=== PATIENT | male | born 1965 | race Caucasian/White ===

== ENCOUNTER → 2018-04-24 08:17 | Outpatient (CLI) | payer OTHER, SELFPAY ==
[2018-04-24 10:03] LABS: Add Manual Diff / Slide Review NO; Basophils Percent Auto 0.6 % (0-2); Eosinophils Percent Auto 2.9 % (2-4); Hematocrit 43.9 % (41-53); Hemoglobin 15.1 g/dL (13.5-17.5); Lymphocytes Percent Auto 10.6 % (25-40); Mean Corpuscular HGB Conc 34.4 % (30-36); Mean Corpuscular Hemoglobin 29.3 PG (26-34); Monocytes Percent Auto 6.3 % (3-14); Neutrophils Absolute Auto 7300 /uL (3000-5900); Neutrophils Percent Auto 79.6 % (50-75); Platelet Count 283 X10^3/uL (150-400); Red Blood Cell Count 5.16 X10^6/uL (4.5-5.9); Red Cell Distribution Width 14.3 % (11.6-14.8); White Blood Cell Count 9.1 X10^3/uL (4.5-11.0)
[2018-04-24 10:07] LABS: Alanine Aminotransferase 66 IU/L (21-72); Albumin 4.7 g/dL (3.5-5.0); Albumin Globulin Ratio 1.6 (1.0-2.8); Alkaline Phosphatase 63 U/L (38-126); Aspartate Aminotransferase 27 IU/L (17-59); BUN Creatinine Ratio 32.9 (6-22); Bilirubin Total 0.5 mg/dL (0.2-1.3); Blood Urea Nitrogen 23 mg/dL (9-20); Calcium 9.7 mg/dL (8.4-10.2); Carbon Dioxide 29 mmol/L (22-32); Chloride 99 mmol/L (98-107); Estimated Glomerular Filt Rate > 60.0 mL/min (>60); Globulin 2.9 g/dL (1.7-4.1); Glucose 115 mg/dL (70-100); HEMOLYSIS < 15 (0-50); Potassium 4.1 mmol/L (3.4-5.1); Sodium 141 mmol/L (137-145); Total Protein 7.6 g/dL (6.3-8.2)
[2018-04-24 10:27] LABS: Follicle Stimulating Hormone 1.66 mIU/mL
[2018-04-27 20:21] LABS: Testosterone, Free 0.69 ng/dL
== END ==
PROVIDERS: PCP Family Medicine; Visit Provider Family Medicine
DX: G35 Multiple sclerosis (principal); E34.9 Endocrine disorder, unspecified; E29.1 Testicular hypofunction
CPT/HCPCS: 36415; 80053; 83001; 83002; 84402; 85025

== ENCOUNTER 2018-06-26 07:30 | Outpatient (RCR) | payer OTHER, SELFPAY ==
--- NOTE | 2018-03-29 11:40 | PT.OTN ---
Current Diagnoses Multiple sclerosis (03/29/18) Muscle weakness (generalized) (03/29/18) Unsteadiness on feet (03/29/18) Transition note: On March 27, 2018 our therapy services consisting of Speech, Occupational, and Physical Therapy transitioned from the [employer] electronic documentation system to a new [employer] electronic documentation system.?? All documentation prior to March 27 can be found under [employer] saved data. From March 27 forward all medical record documentation will be in [employer] 6.1.
--- NOTE | 2018-04-05 08:21 | PT.OTRE ---
Current Diagnoses Multiple sclerosis (04/05/18) Muscle weakness (generalized) (04/05/18) Unsteadiness on feet (04/05/18) Surgical History Status post appendectomy Status post cholecystectomy Provider Visit Care Team Role Provider Type Jannet Luque MD Attending Provider Non-Staff Family Provider Primary Care Provider Specialty: Medical Address: [address] [place] [address], [id number], [place], [address] Email: Physical Therapy Re-Evaluation PT-OP-A Visit Information Start: 03/29/18 07:32 Freq: Status: Active Protocol: Document 03/29/18 08:20 EA (Rec: 03/29/18 09:02 EA [id number]) Out-Patient Physical Therapy Visit Information Visit Information Visit Type Treatment Note Visit Note Re-assessment Total Visit Minutes 45 Visit Number 17 of 60 PT-OP-C Subjective Start: 03/29/18 07:32 Freq: Status: Active Protocol: Document 03/29/18 08:20 EA (Rec: 03/29/18 09:02 EA [id number]) OP-PT Subjective Patient Comments Patient Comments Patient reports activity tolerance is improved as he is able to perform regular cardio and HEP more than 3x wk ; states at times general fatigue but recovered quickly. Denies fall in the past weeks and currently maintain ADL's except with driving and bathing. Patient Reported Progress Improving PT-OP-D Balance Start: 03/29/18 07:32 Freq: Status: Active Protocol: Document 03/29/18 08:20 EA (Rec: 03/29/18 09:02 EA [id number]) OP-PT Balance Assessment Sitting Balance Static Sitting Balance Ability Good Dynamic Sitting Balance Ability Good Standing Balance Static Standing Balance Ability Good Dynamic Standing Balance Ability Fair Device Used standrad cane to left hand Standing Balance Comments Balance difficulty accompanied w/ muscular fatigue and weakness Balance Tests Barry Balance Test Barry Impairment Rating 40 to 59% Impaired (Score 23- 33) Functional Reach Functional Reach Impairment Rating 1 to <20% Impaired (Score 9) Romberg Romberg unable Single Limb Standing Single Limb- Right unable Single Limb- Left unable Semi-Tandem Standing Semi-Tandem Standing Balance unable Tandem Tandem Standing Unable Other Other Balance Tests Performed TUG TEST: w/ cane = 22 seconds . High risk fall Barry Balance Assessment Evaluation Sitting to Standing Ability Independent w/Hands Unsupported Stance Safely- 2 minutes Sitting Unsupported, Feet on Floor Safely- 2 minutes Standing to Sitting Ability Safely, Minimal Hand Use Transfer Ability Safely, Hand Use Unsupported Stance- Eyes Closed Supervision, 10 seconds Unsupported Stance- Eyes Open Independent, 1 minute Reaching Forward Standing Confidently, 10 inches Pick- Up Object From Floor Requires Assistance Look Behind Shoulder - Standing Shifts Weight Well Turning 360 Degrees Turns slowly, but safely Unsupported Stance, Alternating Feet on Assist to Prevent Fall Stair Unsupported Tandem Stance Balance Lost- Step/Stand Unilateral Leg Stance Unable,assist to not fall Total Score Barry Total Score (out of 56 points) 35 Barry Impairment Rating 20 to 39% Impaired (Score 34- 44) Tinetti Balance Assessment Sitting Balance Sitting Balance Steady, safe Arising from Chair Ability to Arise Able, uses arms to help Attempts to Arise Arises on 1st attempt Standing Balance Immediate Standing Balance Steady w/o support Standing Balance Steady, wide stance Nudged Response Steady Standing with Eyes Closed Steady Turning Step Pattern Turning 360 Degrees Continuous steps Stability Turning 360 Degrees Steady Sitting Down Sitting Down Uses arms or unsteady Gait and Step Initiation of Gait No hesitancy Right Foot Step Length Does not pass stance ft. Right Foot Step Height Does not clear floor Left Foot Step Length Does pass stance foot Left Foot Step Height Completely clears floor Step Description Step Symmetry Step length not equal Gait Description Path Description Straight Scoring and Interpretation Tinetti Composite Score (points) 18 Interpretation of Scores High risk for falls(< 19) Tinetti Impairment Rating from Composite 20 to <40% Impaired (Score 17- Score 22) Escoto Fall Scale Copyright Permission Tigist JM, Tigist RM, Trung SJ. Development of a scale to identify the fall- prone patient. Can J Aging 1989;8;366-7. Kat Escoto (2009). Preventing patient falls. (2nd ed). [place]: [place]. PT-OP-E Functional Tests Start: 03/29/18 07:32 Freq: Status: Active Protocol: Document 03/29/18 09:10 EA (Rec: 03/29/18 09:15 EA [id number]) Functional Tests Timed Up and Go (TUG) Score 22 Comments w/ cane TUG Impairment Rating 100% Impaired (Score 20) PT-OP-G Mobility & Gait Start: 05/03/18 07:32 Freq: Status: Active Protocol: Document 03/29/18 13:44 EA (Rec: 03/29/18 13:48 EA [id number]) OP Gait Assessment Gait Gait Assistance Required: Independent Able to Maintain Weight Bearing Status Yes During Gait Assistive Devices Assistive Device Gait Belt Straight Cane Orthotic/Prosthetic Devices or Brace: Yes Gait Deviations General Gait Pattern Decreased Feet Clearance Lateral Trunk Lean Wide Based Gait Factors Limiting Gait Function Factors Limiting Gait Function Abnormal Tonal Influences Decreased Strength Comments Gait Comments Patient ambulated typical flexion synergy pattern w/ right elbow flex and right foot slight PF during swing phase; however when foot orthotic is on, patient able to clear the foot effectively. Constan cues iproved patien amb. Stair Climbing Evaluation Evaluation Level of Assist On Stairs Standby Assistance Devices Stair Climbing Assistive Devices Straight Cane Technique/Endurance Stair Climbing Direction Ascend and Descend Stair Climbing Technique Step Over Step PT-OP-H Neuro Start: 03/29/18 07:32 Freq: Status: Active Protocol: Document 03/29/18 09:10 EA (Rec: 03/29/18 09:15 EA [id number]) Muscle Tone Tone Assessment Right Lower Extremity Extensor Tone Description Mild Hypertonicity Manifestations of Tone Fluctuation Muscle Tone Comments Garde 1 spaticity PT-OP-M Strength Start: 03/29/18 07:32 Freq: Status: Active Protocol: Document 03/29/18 09:10 EA (Rec: 03/29/18 09:15 EA [id number]) Shoulder Strength Shoulder Manual Muscle Testing Right Flexion 3+ Fair+ Extension 3+ Fair+ Abduction (C5) 3+ Fair+ Adduction 3+ Fair+ External Rotation 3+ Fair+ Hip Strength Hip Manual Muscle Testing Right Flexion (L2) 3+ Fair+ Abduction 3+ Fair+ External Rotation 3+ Fair+ Knee Strength Knee Manual Muscle Testing Right Flexion (S2) 3+ Fair+ Extension (L3) 4- Good- PT-OP-T Assessment and Plan Start: 03/29/18 07:32 Freq: Status: Active Protocol: Document 03/29/18 13:44 EA (Rec: 03/29/18 13:48 EA [id number]) Physical Therapy Assessment Rehab Potential Rehabilitation Potential Fair Impairments Impairments Activity Tolerance Balance Coordination Gait Tone Goals Three Impairment MMT to right Hp ABD/Flexors of 3-/5; knee flexors; Right ankle DF 2/5 Spiral Runner Goal (LTG) Patient will increase MMT to right hip ABD/Flexors, knee flexors and DF by 1/2 grade to improve gait LTG Duration 6 weeks Two Impairment Decreased walking distance tolerance Spiral Runner Goal (LTG) Patient will ambulate w/ aids x 300 ft w/ no rest on level surfaces indep. LTG Duration 6 weeks One Spiral Runner Goal (LTG) Patient will exhibit increase strength to RUE/LE by 1/2 grade to improve gait and mobility Progress Towards Goals Progress Towards Goals Slow Progress due to Activity Tolerance Slow Progress due to Attendance Issues Slow Progress - Other Assessment Summary Assessment 52 y/o male patient w/ a relapsing/remitting MS diagnosis and with strength deficits to right UE/LE, and balance difficulty in standing demonstrates slow progress in the 6 weeks careplan duration of skilled PT. Patient multiple missed scheduled appointments due to fatigue and transoprtation issues has been the barrier to patient progress. However, patient is motivated to cont. skilled PT and is willing to comply w/ home exercise program. Patient will cont. to benefit with skilled PT w/ the focus mainly increasing right LE strength, standing dynamic balance, gait, and endurance to improve functional mobility. Patient will cont. to benefit with skilled PT for the next 6 weeks. Physical Therapy Plan Frequency and Duration Frequency of Treatment 2x/Week Plan of Care Start Date 04/02/18 Plan of Care End Date 05/14/18 Therapeutic Interventions Therapeutic Interventions Balance Training Coordination Training Gait Training Home Exercise Program Neuromuscular Re-education Patient/Caregiver Education Self-Care/Home Management Therapeutic Activities Therapeutic Exercises Next Visit Focus/Plan Next Visit Plan Cont. with current program and increase ambulation distance w/ improve gait pattern.
--- NOTE | 2018-04-05 08:29 | PT.OPPOC ---
Current Diagnoses Multiple sclerosis (04/05/18) Muscle weakness (generalized) (04/05/18) Unsteadiness on feet (04/05/18) Provider Visit Care Team Role Provider Type Jannet Luque MD Attending Provider Non-Staff Family Provider Primary Care Provider Specialty: Medical Address: [address] [place] [address], [id number], [place], [address] Email: Plan Of Care PT-OP-T Assessment and Plan Start: 03/29/18 07:32 Freq: Status: Active Protocol: Document 03/29/18 13:44 EA (Rec: 03/29/18 13:48 EA [id number]) Physical Therapy Assessment Rehab Potential Rehabilitation Potential Fair Impairments Impairments Activity Tolerance Balance Coordination Gait Tone Goals Three Impairment MMT to right Hp ABD/Flexors of 3-/5; knee flexors; Right ankle DF 2/5 Cherry Dipper Goal (LTG) Patient will increase MMT to right hip ABD/Flexors, knee flexors and DF by 1/2 grade to improve gait LTG Duration 6 weeks Two Impairment Decreased walking distance tolerance Cherry Dipper Goal (LTG) Patient will ambulate w/ aids x 300 ft w/ no rest on level surfaces indep. LTG Duration 6 weeks One Cherry Dipper Goal (LTG) Patient will exhibit increase strength to RUE/LE by 1/2 grade to improve gait and mobility Progress Towards Goals Progress Towards Goals Slow Progress due to Activity Tolerance Slow Progress due to Attendance Issues Slow Progress - Other Assessment Summary Assessment 52 y/o male patient w/ a relapsing/remitting MS diagnosis and with strength deficits to right UE/LE, and balance difficulty in standing demonstrates slow progress in the 6 weeks careplan duration of skilled PT. Patient multiple missed scheduled appointments due to fatigue and transoprtation issues has been the barrier to patient progress. However, patient is motivated to cont. skilled PT and is willing to comply w/ home exercise program. Patient will cont. to benefit with skilled PT w/ the focus mainly increasing right LE strength, standing dynamic balance, gait, and endurance to improve functional mobility. Patient will cont. to benefit with skilled PT for the next 6 weeks. Physical Therapy Plan Frequency and Duration Frequency of Treatment 2x/Week Plan of Care Start Date 04/02/18 Plan of Care End Date 05/14/18 Therapeutic Interventions Therapeutic Interventions Balance Training Coordination Training Gait Training Home Exercise Program Neuromuscular Re-education Patient/Caregiver Education Self-Care/Home Management Therapeutic Activities Therapeutic Exercises Next Visit Focus/Plan Next Visit Plan Cont. with current program and increase ambulation distance w/ improve gait pattern. Plan of Care Dates Plan of Care Start Date 04/02/18 Plan of Care End Date 05/14/18 Please Sign and Return: I have reviewed this Plan of Care and certify that the skilled therapy services above are required to meet the patient???s needs. Physician Signature Date Printed Name and Credentials
--- NOTE | 2018-04-05 09:39 | PT.OTN ---
Current Diagnoses Multiple sclerosis (04/05/18) Muscle weakness (generalized) (04/05/18) Unsteadiness on feet (04/05/18) Physical Therapy Treatment Note PT-OP-A Visit Information Start: 03/29/18 07:32 Freq: Status: Active Protocol: Document 04/05/18 08:30 EA (Rec: 04/05/18 09:39 EA [id number]) Out-Patient Physical Therapy Visit Information Visit Information Visit Type Treatment Note PT-OP-C Subjective Start: 03/29/18 07:32 Freq: Status: Active Protocol: Document 04/05/18 08:36 EA (Rec: 04/05/18 08:39 EA [id number]) OP-PT Subjective Patient Comments Patient Comments Patient reports have better energy today and thinks it is due to sleep and balance diet he's on. Patient also reports that he would be away for two weeks and is planning to focus with HEP and other recommendation while away. PT-OP-D Balance Start: 03/29/18 07:32 Freq: Status: Active Protocol: Document 03/29/18 08:20 EA (Rec: 03/29/18 09:02 EA [id number]) OP-PT Balance Assessment Sitting Balance Static Sitting Balance Ability Good Dynamic Sitting Balance Ability Good Standing Balance Static Standing Balance Ability Good Dynamic Standing Balance Ability Fair Device Used standrad cane to left hand Standing Balance Comments Balance difficulty accompanied w/ muscular fatigue and weakness Balance Tests Barry Balance Test Barry Impairment Rating 40 to 59% Impaired (Score 23- 33) Functional Reach Functional Reach Impairment Rating 1 to <20% Impaired (Score 9) Romberg Romberg unable Single Limb Standing Single Limb- Right unable Single Limb- Left unable Semi-Tandem Standing Semi-Tandem Standing Balance unable Tandem Tandem Standing Unable Other Other Balance Tests Performed TUG TEST: w/ cane = 22 seconds . High risk fall Barry Balance Assessment Evaluation Sitting to Standing Ability Independent w/Hands Unsupported Stance Safely- 2 minutes Sitting Unsupported, Feet on Floor Safely- 2 minutes Standing to Sitting Ability Safely, Minimal Hand Use Transfer Ability Safely, Hand Use Unsupported Stance- Eyes Closed Supervision, 10 seconds Unsupported Stance- Eyes Open Independent, 1 minute Reaching Forward Standing Confidently, 10 inches Pick- Up Object From Floor Requires Assistance Look Behind Shoulder - Standing Shifts Weight Well Turning 360 Degrees Turns slowly, but safely Unsupported Stance, Alternating Feet on Assist to Prevent Fall Stair Unsupported Tandem Stance Balance Lost- Step/Stand Unilateral Leg Stance Unable,assist to not fall Total Score Barry Total Score (out of 56 points) 35 Barry Impairment Rating 20 to 39% Impaired (Score 34- 44) Tinetti Balance Assessment Sitting Balance Sitting Balance Steady, safe Arising from Chair Ability to Arise Able, uses arms to help Attempts to Arise Arises on 1st attempt Standing Balance Immediate Standing Balance Steady w/o support Standing Balance Steady, wide stance Nudged Response Steady Standing with Eyes Closed Steady Turning Step Pattern Turning 360 Degrees Continuous steps Stability Turning 360 Degrees Steady Sitting Down Sitting Down Uses arms or unsteady Gait and Step Initiation of Gait No hesitancy Right Foot Step Length Does not pass stance ft. Right Foot Step Height Does not clear floor Left Foot Step Length Does pass stance foot Left Foot Step Height Completely clears floor Step Description Step Symmetry Step length not equal Gait Description Path Description Straight Scoring and Interpretation Tinetti Composite Score (points) 18 Interpretation of Scores High risk for falls(< 19) Tinetti Impairment Rating from Composite 20 to <40% Impaired (Score 17- Score 22) Escoto Fall Scale Copyright Permission Tigist MAY, Tigist RM, Trung SJ. Development of a scale to identify the fall- prone patient. Can J Aging 1989;8;366-7. Kat Escoto (2009). Preventing patient falls. (2nd ed). [place]: [place]. PT-OP-E Functional Tests Start: 03/29/18 07:32 Freq: Status: Active Protocol: Document 03/29/18 09:10 EA (Rec: 03/29/18 09:15 EA [id number]) Functional Tests Timed Up and Go (TUG) Score 22 Comments w/ cane TUG Impairment Rating 100% Impaired (Score 20) PT-OP-G Mobility & Gait Start: 03/29/18 07:32 Freq: Status: Active Protocol: Document 03/29/18 13:44 EA (Rec: 03/29/18 13:48 EA [id number]) OP Gait Assessment Gait Gait Assistance Required: Independent Able to Maintain Weight Bearing Status Yes During Gait Assistive Devices Assistive Device Gait Belt Straight Cane Orthotic/Prosthetic Devices or Brace: Yes Gait Deviations General Gait Pattern Decreased Feet Clearance Lateral Trunk Lean Wide Based Gait Factors Limiting Gait Function Factors Limiting Gait Function Abnormal Tonal Influences Decreased Strength Comments Gait Comments Patient ambulated typical flexion synergy pattern w/ right elbow flex and right foot slight PF during swing phase; however when foot orthotic is on, patient able to clear the foot effectively. Constan cues iproved patien amb. Stair Climbing Evaluation Evaluation Level of Assist On Stairs Standby Assistance Devices Stair Climbing Assistive Devices Straight Cane Technique/Endurance Stair Climbing Direction Ascend and Descend Stair Climbing Technique Step Over Step PT-OP-H Neuro Start: 03/29/18 07:32 Freq: Status: Active Protocol: Document 03/29/18 09:10 EA (Rec: 03/29/18 09:15 EA [id number]) Muscle Tone Tone Assessment Right Lower Extremity Extensor Tone Description Mild Hypertonicity Manifestations of Tone Fluctuation Muscle Tone Comments Garde 1 spaticity PT-OP-M Strength Start: 03/29/18 07:32 Freq: Status: Active Protocol: Document 03/29/18 09:10 EA (Rec: 03/29/18 09:15 EA [id number]) Shoulder Strength Shoulder Manual Muscle Testing Right Flexion 3+ Fair+ Extension 3+ Fair+ Abduction (C5) 3+ Fair+ Adduction 3+ Fair+ External Rotation 3+ Fair+ Hip Strength Hip Manual Muscle Testing Right Flexion (L2) 3+ Fair+ Abduction 3+ Fair+ External Rotation 3+ Fair+ Knee Strength Knee Manual Muscle Testing Right Flexion (S2) 3+ Fair+ Extension (L3) 4- Good- PT-OP-Q Treatments Start: 03/29/18 07:32 Freq: Status: Active Protocol: Document 04/05/18 08:30 EA (Rec: 04/05/18 09:38 EA [id number]) Gym Equipment Shuttle Balance 1 Details Blue clips: NBOS/WBOS Reps/Duration 10 mins Comments Arm challenge Therapeutic Exercises Standing Exercises 2 Standing Exercise Name Semi squat: DB shlder ex's Resistance 1-3 lbs Reps/Minutes x 12 x 3 sets Comments Front raise, side raise. press 1 Standing Exercise Name Rails side step squat w/ heel raises Resistance BW and YTB Reps/Minutes x 10 Other Exercises 1 Other Exercise Name Obstacle/yuli stepping FWD Equipment Used single rail Gait Training Gait Activity 2 Description STC floor amb Level of Assistance SBA Distance/Duration 120- ft x 2 Treatment Focus endurance, right foot dragged awaren 1 Description Stairs: step through Device Used handrails bilat Level of Assistance SBA Distance/Duration 7 Comments full arm support when in left foot descent Neuro Re-Education Treatment Balance Activities 1 Details Foam: NBOS/Staggered stance Comments w/ hand challenge PT-OP-T Assessment and Plan Start: 03/29/18 07:32 Freq: Status: Active Protocol: Document 04/05/18 08:30 EA (Rec: 04/05/18 09:38 EA [id number]) Physical Therapy Assessment Assessment Summary Assessment Patient tolerated treatment well and progressing well. Physical Therapy Plan Next Visit Focus/Plan Next Visit Plan Cont. with current program.
--- NOTE | 2018-04-24 10:25 | PT.OTN ---
Current Diagnoses Multiple sclerosis (04/24/18) Muscle weakness (generalized) (04/24/18) Unsteadiness on feet (04/24/18) Physical Therapy Treatment Note PT-OP-A Visit Information Start: 03/29/18 07:32 Freq: Status: Active Protocol: Document 04/24/18 08:12 EA (Rec: 04/24/18 08:17 EA [id number]) Out-Patient Physical Therapy Visit Information Visit Information Visit Start Time 07:30 Visit Stop Time 08:10 Total Visit Minutes 40 Visit Number PT-OP-C Subjective Start: 03/29/18 07:32 Freq: Status: Active Protocol: Document 04/24/18 08:12 EA (Rec: 04/24/18 08:17 EA [id number]) OP-PT Subjective Patient Comments Patient Comments Patienty reports he was very glad with his travel as he felt much energetic at this time which he though he is improved. PT-OP-D Balance Start: 03/29/18 07:32 Freq: Status: Active Protocol: Document 03/29/18 08:20 EA (Rec: 03/29/18 09:02 EA [id number]) OP-PT Balance Assessment Sitting Balance Static Sitting Balance Ability Good Dynamic Sitting Balance Ability Good Standing Balance Static Standing Balance Ability Good Dynamic Standing Balance Ability Fair Device Used standrad cane to left hand Standing Balance Comments Balance difficulty accompanied w/ muscular fatigue and weakness Balance Tests Barry Balance Test Barry Impairment Rating 40 to 59% Impaired (Score 23- 33) Functional Reach Functional Reach Impairment Rating 1 to <20% Impaired (Score 9) Romberg Romberg unable Single Limb Standing Single Limb- Right unable Single Limb- Left unable Semi-Tandem Standing Semi-Tandem Standing Balance unable Tandem Tandem Standing Unable Other Other Balance Tests Performed TUG TEST: w/ cane = 22 seconds . High risk fall Barry Balance Assessment Evaluation Sitting to Standing Ability Independent w/Hands Unsupported Stance Safely- 2 minutes Sitting Unsupported, Feet on Floor Safely- 2 minutes Standing to Sitting Ability Safely, Minimal Hand Use Transfer Ability Safely, Hand Use Unsupported Stance- Eyes Closed Supervision, 10 seconds Unsupported Stance- Eyes Open Independent, 1 minute Reaching Forward Standing Confidently, 10 inches Pick- Up Object From Floor Requires Assistance Look Behind Shoulder - Standing Shifts Weight Well Turning 360 Degrees Turns slowly, but safely Unsupported Stance, Alternating Feet on Assist to Prevent Fall Stair Unsupported Tandem Stance Balance Lost- Step/Stand Unilateral Leg Stance Unable,assist to not fall Total Score Barry Total Score (out of 56 points) 35 Barry Impairment Rating 20 to 39% Impaired (Score 34- 44) Tinetti Balance Assessment Sitting Balance Sitting Balance Steady, safe Arising from Chair Ability to Arise Able, uses arms to help Attempts to Arise Arises on 1st attempt Standing Balance Immediate Standing Balance Steady w/o support Standing Balance Steady, wide stance Nudged Response Steady Standing with Eyes Closed Steady Turning Step Pattern Turning 360 Degrees Continuous steps Stability Turning 360 Degrees Steady Sitting Down Sitting Down Uses arms or unsteady Gait and Step Initiation of Gait No hesitancy Right Foot Step Length Does not pass stance ft. Right Foot Step Height Does not clear floor Left Foot Step Length Does pass stance foot Left Foot Step Height Completely clears floor Step Description Step Symmetry Step length not equal Gait Description Path Description Straight Scoring and Interpretation Tinetti Composite Score (points) 18 Interpretation of Scores High risk for falls(< 19) Tinetti Impairment Rating from Composite 20 to <40% Impaired (Score 17- Score 22) Escoto Fall Scale Copyright Permission Tigist MAY, Tigist RM, Trung SJ. Development of a scale to identify the fall- prone patient. Can J Aging 1989;8;366-7. Kat Escoto (2009). Preventing patient falls. (2nd ed). [place]: [place]. PT-OP-E Functional Tests Start: 03/29/18 07:32 Freq: Status: Active Protocol: Document 03/29/18 09:10 EA (Rec: 03/29/18 09:15 EA [id number]) Functional Tests Timed Up and Go (TUG) Score 22 Comments w/ cane TUG Impairment Rating 100% Impaired (Score 20) PT-OP-G Mobility & Gait Start: 03/29/18 07:32 Freq: Status: Active Protocol: Document 03/29/18 13:44 EA (Rec: 03/29/18 13:48 EA [id number]) OP Gait Assessment Gait Gait Assistance Required: Independent Able to Maintain Weight Bearing Status Yes During Gait Assistive Devices Assistive Device Gait Belt Straight Cane Orthotic/Prosthetic Devices or Brace: Yes Gait Deviations General Gait Pattern Decreased Feet Clearance Lateral Trunk Lean Wide Based Gait Factors Limiting Gait Function Factors Limiting Gait Function Abnormal Tonal Influences Decreased Strength Comments Gait Comments Patient ambulated typical flexion synergy pattern w/ right elbow flex and right foot slight PF during swing phase; however when foot orthotic is on, patient able to clear the foot effectively. Constant cues improved patient amb. Stair Climbing Evaluation Evaluation Level of Assist On Stairs Standby Assistance Devices Stair Climbing Assistive Devices Straight Cane Technique/Endurance Stair Climbing Direction Ascend and Descend Stair Climbing Technique Step Over Step PT-OP-H Neuro Start: 03/29/18 07:32 Freq: Status: Active Protocol: Document 03/29/18 09:10 EA (Rec: 03/29/18 09:15 EA [id number]) Muscle Tone Tone Assessment Right Lower Extremity Extensor Tone Description Mild Hypertonicity Manifestations of Tone Fluctuation Muscle Tone Comments Garde 1 spaticity PT-OP-M Strength Start: 03/29/18 07:32 Freq: Status: Active Protocol: Document 03/29/18 09:10 EA (Rec: 03/29/18 09:15 EA [id number]) Shoulder Strength Shoulder Manual Muscle Testing Right Flexion 3+ Fair+ Extension 3+ Fair+ Abduction (C5) 3+ Fair+ Adduction 3+ Fair+ External Rotation 3+ Fair+ Hip Strength Hip Manual Muscle Testing Right Flexion (L2) 3+ Fair+ Abduction 3+ Fair+ External Rotation 3+ Fair+ Knee Strength Knee Manual Muscle Testing Right Flexion (S2) 3+ Fair+ Extension (L3) 4- Good- PT-OP-Q Treatments Start: 03/29/18 07:32 Freq: Status: Active Protocol: Document 04/24/18 08:12 EA (Rec: 04/24/18 08:17 EA [id number]) Cardio Equipment Recumbent Stepper (Sci-Fit) Duration (Minutes) 7 Resistance 2 Gym Equipment Shuttle Balance 1 Details Blue clips: NBOS/WBOS Reps/Duration 10 mins Comments Arm challenge Therapeutic Exercises Standing Exercises 2 Standing Exercise Name Semi squat: DB shlder ex's Resistance 1-3 lbs Reps/Minutes x 12 x 3 sets Comments Front raise, side raise. press 1 Standing Exercise Name Rails side step squat w/ heel raises Resistance BW and YTB Reps/Minutes x 10 Other Exercises 1 Other Exercise Name Obstacle/yuli stepping FWD Equipment Used single rail Gait Training Gait Activity 2 Description STC floor amb Level of Assistance SBA Distance/Duration 120- ft x 2 Treatment Focus endurance, right foot dragged awaren 1 Description Stairs: step through Device Used handrails bilat Level of Assistance SBA Distance/Duration 7 Comments full arm support when in left foot descent Neuro Re-Education Treatment Balance Activities 1 Details Foam: NBOS/Staggered stance Comments w/ hand challenge PT-OP-T Assessment and Plan Start: 03/29/18 07:32 Freq: Status: Active Protocol: Document 04/24/18 08:12 EA (Rec: 04/24/18 08:17 EA [id number]) Physical Therapy Assessment Assessment Summary Assessment Patient tolerated treatment well with less SOB noted at this time. Physical Therapy Plan Next Visit Focus/Plan Next Visit Plan Cont. w/current rehab. Please Sign and Return: I have reviewed this Plan of Care and certify that the skilled therapy services above are required to meet the patient???s needs. Physician Signature Date Printed Name and Credentials Clinical Instructor Signature Printed Name and Credentials
--- NOTE | 2018-05-01 08:23 | PT.OTN ---
Current Diagnoses Multiple sclerosis (05/01/18) Muscle weakness (generalized) (05/01/18) Unsteadiness on feet (05/01/18) Physical Therapy Treatment Note PT-OP-A Visit Information Start: 03/29/18 07:32 Freq: Status: Active Protocol: Document 05/01/18 08:13 EA (Rec: 05/01/18 08:19 EA [id number]) Out-Patient Physical Therapy Visit Information Visit Information Visit Type Treatment Note Visit Start Time 07:30 Visit Stop Time 08:15 Total Visit Minutes 45 Visit Number PT-OP-C Subjective Start: 03/29/18 07:32 Freq: Status: Active Protocol: Document 05/01/18 08:13 EA (Rec: 05/01/18 08:19 EA [id number]) OP-PT Subjective Patient Comments Patient Comments Patient reports he has been compliants with HEP; states fatigue mostly happen after dinner and energy back 2 hours after meal. Patient reports that he feels his legs is getting stronger. PT-OP-D Balance Start: 03/29/18 07:32 Freq: Status: Active Protocol: Document 03/29/18 08:20 EA (Rec: 03/29/18 09:02 EA [id number]) OP-PT Balance Assessment Sitting Balance Static Sitting Balance Ability Good Dynamic Sitting Balance Ability Good Standing Balance Static Standing Balance Ability Good Dynamic Standing Balance Ability Fair Device Used standrad cane to left hand Standing Balance Comments Balance difficulty accompanied w/ muscular fatigue and weakness Balance Tests Barry Balance Test Barry Impairment Rating 40 to 59% Impaired (Score 23- 33) Functional Reach Functional Reach Impairment Rating 1 to <20% Impaired (Score 9) Romberg Romberg unable Single Limb Standing Single Limb- Right unable Single Limb- Left unable Semi-Tandem Standing Semi-Tandem Standing Balance unable Tandem Tandem Standing Unable Other Other Balance Tests Performed TUG TEST: w/ cane = 22 seconds . High risk fall Barry Balance Assessment Evaluation Sitting to Standing Ability Independent w/Hands Unsupported Stance Safely- 2 minutes Sitting Unsupported, Feet on Floor Safely- 2 minutes Standing to Sitting Ability Safely, Minimal Hand Use Transfer Ability Safely, Hand Use Unsupported Stance- Eyes Closed Supervision, 10 seconds Unsupported Stance- Eyes Open Independent, 1 minute Reaching Forward Standing Confidently, 10 inches Pick- Up Object From Floor Requires Assistance Look Behind Shoulder - Standing Shifts Weight Well Turning 360 Degrees Turns slowly, but safely Unsupported Stance, Alternating Feet on Assist to Prevent Fall Stair Unsupported Tandem Stance Balance Lost- Step/Stand Unilateral Leg Stance Unable,assist to not fall Total Score Barry Total Score (out of 56 points) 35 Barry Impairment Rating 20 to 39% Impaired (Score 34- 44) Tinetti Balance Assessment Sitting Balance Sitting Balance Steady, safe Arising from Chair Ability to Arise Able, uses arms to help Attempts to Arise Arises on 1st attempt Standing Balance Immediate Standing Balance Steady w/o support Standing Balance Steady, wide stance Nudged Response Steady Standing with Eyes Closed Steady Turning Step Pattern Turning 360 Degrees Continuous steps Stability Turning 360 Degrees Steady Sitting Down Sitting Down Uses arms or unsteady Gait and Step Initiation of Gait No hesitancy Right Foot Step Length Does not pass stance ft. Right Foot Step Height Does not clear floor Left Foot Step Length Does pass stance foot Left Foot Step Height Completely clears floor Step Description Step Symmetry Step length not equal Gait Description Path Description Straight Scoring and Interpretation Tinetti Composite Score (points) 18 Interpretation of Scores High risk for falls(< 19) Tinetti Impairment Rating from Composite 20 to <40% Impaired (Score 17- Score 22) Escoto Fall Scale Copyright Permission Tigist MAY, Tigist RM, Trung SJ. Development of a scale to identify the fall- prone patient. Can J Aging 1989;8;366-7. Kat Escoto (2009). Preventing patient falls. (2nd ed). [place]: [place]. PT-OP-E Functional Tests Start: 03/29/18 07:32 Freq: Status: Active Protocol: Document 03/29/18 09:10 EA (Rec: 03/29/18 09:15 EA [id number]) Functional Tests Timed Up and Go (TUG) Score 22 Comments w/ cane TUG Impairment Rating 100% Impaired (Score 20) PT-OP-G Mobility & Gait Start: 03/29/18 07:32 Freq: Status: Active Protocol: Document 03/29/18 13:44 EA (Rec: 03/29/18 13:48 EA [id number]) OP Gait Assessment Gait Gait Assistance Required: Independent Able to Maintain Weight Bearing Status Yes During Gait Assistive Devices Assistive Device Gait Belt Straight Cane Orthotic/Prosthetic Devices or Brace: Yes Gait Deviations General Gait Pattern Decreased Feet Clearance Lateral Trunk Lean Wide Based Gait Factors Limiting Gait Function Factors Limiting Gait Function Abnormal Tonal Influences Decreased Strength Comments Gait Comments Patient ambulated typical flexion synergy pattern w/ right elbow flex and right foot slight PF during swing phase; however when foot orthotic is on, patient able to clear the foot effectively. Caridad bergeron iproved patien amb. Stair Climbing Evaluation Evaluation Level of Assist On Stairs Standby Assistance Devices Stair Climbing Assistive Devices Straight Cane Technique/Endurance Stair Climbing Direction Ascend and Descend Stair Climbing Technique Step Over Step PT-OP-H Neuro Start: 03/29/18 07:32 Freq: Status: Active Protocol: Document 03/29/18 09:10 EA (Rec: 03/29/18 09:15 EA [id number]) Muscle Tone Tone Assessment Right Lower Extremity Extensor Tone Description Mild Hypertonicity Manifestations of Tone Fluctuation Muscle Tone Comments Garde 1 spaticity PT-OP-M Strength Start: 03/29/18 07:32 Freq: Status: Active Protocol: Document 03/29/18 09:10 EA (Rec: 03/29/18 09:15 EA [id number]) Shoulder Strength Shoulder Manual Muscle Testing Right Flexion 3+ Fair+ Extension 3+ Fair+ Abduction (C5) 3+ Fair+ Adduction 3+ Fair+ External Rotation 3+ Fair+ Hip Strength Hip Manual Muscle Testing Right Flexion (L2) 3+ Fair+ Abduction 3+ Fair+ External Rotation 3+ Fair+ Knee Strength Knee Manual Muscle Testing Right Flexion (S2) 3+ Fair+ Extension (L3) 4- Good- PT-OP-Q Treatments Start: 03/29/18 07:32 Freq: Status: Active Protocol: Document 05/01/18 08:21 EA (Rec: 05/01/18 08:21 EA [id number]) Neuro Re-Education Treatment Balance Activities 1 Details Foam: NBOS/Staggered stance Comments w/ hand challenge PT-OP-T Assessment and Plan Start: 03/29/18 07:32 Freq: Status: Active Protocol: Document 05/01/18 08:13 EA (Rec: 05/01/18 08:19 EA [id number]) Physical Therapy Assessment Assessment Summary Assessment Patient noted less recovery time between sets. Patient have improved exercises tolerance. Physical Therapy Plan Next Visit Focus/Plan Next Visit Plan Include coordination/dynamic exercises Please Sign and Return: I have reviewed this Plan of Care and certify that the skilled therapy services above are required to meet the patient?s needs. Physician Signature Date Printed Name and Credentials Clinical Instructor Signature Printed Name and Credentials
--- NOTE | 2018-05-03 09:20 | PT.OTN ---
Current Diagnoses Multiple sclerosis (05/03/18) Muscle weakness (generalized) (05/03/18) Unsteadiness on feet (05/03/18) Physical Therapy Treatment Note PT-OP-A Visit Information Start: 03/29/18 07:32 Freq: Status: Active Protocol: Document 05/03/18 08:12 EA (Rec: 05/03/18 08:17 EA [id number]) Out-Patient Physical Therapy Visit Information Visit Information Visit Type Treatment Note Visit Start Time 07:30 Visit Stop Time 08:15 Total Visit Minutes 40 Visit Number [id number] PT-OP-C Subjective Start: 03/29/18 07:32 Freq: Status: Active Protocol: Document 05/03/18 08:12 EA (Rec: 05/03/18 08:17 EA [id number]) OP-PT Subjective Patient Comments Patient Comments Pt reoprts feels quite fatigue today;states enough sleep and not muscle soreness. PT-OP-D Balance Start: 03/29/18 07:32 Freq: Status: Active Protocol: Document 03/29/18 08:20 EA (Rec: 03/29/18 09:02 EA [id number]) OP-PT Balance Assessment Sitting Balance Static Sitting Balance Ability Good Dynamic Sitting Balance Ability Good Standing Balance Static Standing Balance Ability Good Dynamic Standing Balance Ability Fair Device Used standrad cane to left hand Standing Balance Comments Balance difficulty accompanied w/ muscular fatigue and weakness Balance Tests Barry Balance Test Barry Impairment Rating 40 to 59% Impaired (Score 23- 33) Functional Reach Functional Reach Impairment Rating 1 to <20% Impaired (Score 9) Romberg Romberg unable Single Limb Standing Single Limb- Right unable Single Limb- Left unable Semi-Tandem Standing Semi-Tandem Standing Balance unable Tandem Tandem Standing Unable Other Other Balance Tests Performed TUG TEST: w/ cane = 22 seconds . High risk fall Barry Balance Assessment Evaluation Sitting to Standing Ability Independent w/Hands Unsupported Stance Safely- 2 minutes Sitting Unsupported, Feet on Floor Safely- 2 minutes Standing to Sitting Ability Safely, Minimal Hand Use Transfer Ability Safely, Hand Use Unsupported Stance- Eyes Closed Supervision, 10 seconds Unsupported Stance- Eyes Open Independent, 1 minute Reaching Forward Standing Confidently, 10 inches Pick- Up Object From Floor Requires Assistance Look Behind Shoulder - Standing Shifts Weight Well Turning 360 Degrees Turns slowly, but safely Unsupported Stance, Alternating Feet on Assist to Prevent Fall Stair Unsupported Tandem Stance Balance Lost- Step/Stand Unilateral Leg Stance Unable,assist to not fall Total Score Barry Total Score (out of 56 points) 35 Barry Impairment Rating 20 to 39% Impaired (Score 34- 44) Tinetti Balance Assessment Sitting Balance Sitting Balance Steady, safe Arising from Chair Ability to Arise Able, uses arms to help Attempts to Arise Arises on 1st attempt Standing Balance Immediate Standing Balance Steady w/o support Standing Balance Steady, wide stance Nudged Response Steady Standing with Eyes Closed Steady Turning Step Pattern Turning 360 Degrees Continuous steps Stability Turning 360 Degrees Steady Sitting Down Sitting Down Uses arms or unsteady Gait and Step Initiation of Gait No hesitancy Right Foot Step Length Does not pass stance ft. Right Foot Step Height Does not clear floor Left Foot Step Length Does pass stance foot Left Foot Step Height Completely clears floor Step Description Step Symmetry Step length not equal Gait Description Path Description Straight Scoring and Interpretation Tinetti Composite Score (points) 18 Interpretation of Scores High risk for falls(< 19) Tinetti Impairment Rating from Composite 20 to <40% Impaired (Score 17- Score 22) Escoto Fall Scale Copyright Permission Tigist MAY, Tigist RM, Trung SJ. Development of a scale to identify the fall- prone patient. Can J Aging 1989;8;366-7. Kat Escoto (2009). Preventing patient falls. (2nd ed). [place]: [place]. PT-OP-E Functional Tests Start: 03/29/18 07:32 Freq: Status: Active Protocol: Document 03/29/18 09:10 EA (Rec: 03/29/18 09:15 EA [id number]) Functional Tests Timed Up and Go (TUG) Score 22 Comments w/ cane TUG Impairment Rating 100% Impaired (Score 20) PT-OP-G Mobility & Gait Start: 03/29/18 07:32 Freq: Status: Active Protocol: Document 03/29/18 13:44 EA (Rec: 03/29/18 13:48 EA [id number]) OP Gait Assessment Gait Gait Assistance Required: Independent Able to Maintain Weight Bearing Status Yes During Gait Assistive Devices Assistive Device Gait Belt Straight Cane Orthotic/Prosthetic Devices or Brace: Yes Gait Deviations General Gait Pattern Decreased Feet Clearance Lateral Trunk Lean Wide Based Gait Factors Limiting Gait Function Factors Limiting Gait Function Abnormal Tonal Influences Decreased Strength Comments Gait Comments Patient ambulated typical flexion synergy pattern w/ right elbow flex and right foot slight PF during swing phase; however when foot orthotic is on, patient able to clear the foot effectively. Constan cues iproved patien amb. Stair Climbing Evaluation Evaluation Level of Assist On Stairs Standby Assistance Devices Stair Climbing Assistive Devices Straight Cane Technique/Endurance Stair Climbing Direction Ascend and Descend Stair Climbing Technique Step Over Step PT-OP-H Neuro Start: 03/29/18 07:32 Freq: Status: Active Protocol: Document 03/29/18 09:10 EA (Rec: 03/29/18 09:15 EA [id number]) Muscle Tone Tone Assessment Right Lower Extremity Extensor Tone Description Mild Hypertonicity Manifestations of Tone Fluctuation Muscle Tone Comments Garde 1 spaticity PT-OP-M Strength Start: 03/29/18 07:32 Freq: Status: Active Protocol: Document 03/29/18 09:10 EA (Rec: 03/29/18 09:15 EA [id number]) Shoulder Strength Shoulder Manual Muscle Testing Right Flexion 3+ Fair+ Extension 3+ Fair+ Abduction (C5) 3+ Fair+ Adduction 3+ Fair+ External Rotation 3+ Fair+ Hip Strength Hip Manual Muscle Testing Right Flexion (L2) 3+ Fair+ Abduction 3+ Fair+ External Rotation 3+ Fair+ Knee Strength Knee Manual Muscle Testing Right Flexion (S2) 3+ Fair+ Extension (L3) 4- Good- PT-OP-Q Treatments Start: 03/29/18 07:32 Freq: Status: Active Protocol: Document 05/03/18 08:12 EA (Rec: 05/03/18 08:17 EA [id number]) Cardio Equipment Recumbent Stepper (Sci-Fit) Duration (Minutes) 7 Resistance 2 Gym Equipment Shuttle Balance 1 Details Blue clips: NBOS/WBOS Reps/Duration 10 mins Comments Arm challenge Therapeutic Exercises Standing Exercises 1 Standing Exercise Name Rails side step squat w/ heel raises Resistance BW and YTB Reps/Minutes x 10 Other Exercises 2 Other Exercise Name step fwd/bwd/swd with single hand support Side bilateral Reps/Minutes x 5 each side each exercises x 2 sets Gait Training Gait Activity 2 Description STC floor amb Level of Assistance SBA Distance/Duration 130 Treatment Focus endurance, right foot dragged awaren 1 Description Stairs: step through Device Used handrails bilat Level of Assistance SBA Distance/Duration 7 Comments full arm support when in left foot descent Neuro Re-Education Treatment Balance Activities 1 Details Foam: NBOS/Staggered stance Comments w/ hand challenge PT-OP-T Assessment and Plan Start: 03/29/18 07:32 Freq: Status: Active Protocol: Document 05/03/18 08:12 EA (Rec: 05/03/18 08:17 EA [id number]) Physical Therapy Assessment Assessment Summary Assessment Patient requires frequent rests due to fatigue and SOB. Physical Therapy Plan Next Visit Focus/Plan Next Visit Plan Continue with current program. Please Sign and Return: I have reviewed this Plan of Care and certify that the skilled therapy services above are required to meet the patient?s needs. Physician Signature Date Printed Name and Credentials Clinical Instructor Signature Printed Name and Credentials
--- NOTE | 2018-05-07 08:19 | PT.OTN ---
Current Diagnoses Multiple sclerosis (05/07/18) Muscle weakness (generalized) (05/07/18) Unsteadiness on feet (05/07/18) Physical Therapy Treatment Note PT-OP-A Visit Information Start: 03/29/18 07:32 Freq: Status: Active Protocol: Document 05/07/18 08:12 EA (Rec: 05/07/18 08:19 EA [id number]) Out-Patient Physical Therapy Visit Information Visit Information Visit Type Treatment Note Visit Start Time 07:30 Visit Stop Time 08:15 Total Visit Minutes 40 Visit Number [id number] PT-OP-C Subjective Start: 03/29/18 07:32 Freq: Status: Active Protocol: Document 05/07/18 08:12 EA (Rec: 05/07/18 08:19 EA [id number]) OP-PT Subjective Patient Comments Patient Comments Patient reports that he is feeling much better in the last few days; states that he has been complaint with HEP and doing it when fatigue is less. Denies fall or deterioration fo function. PT-OP-D Balance Start: 03/29/18 07:32 Freq: Status: Active Protocol: Document 03/29/18 08:20 EA (Rec: 03/29/18 09:02 EA [id number]) OP-PT Balance Assessment Sitting Balance Static Sitting Balance Ability Good Dynamic Sitting Balance Ability Good Standing Balance Static Standing Balance Ability Good Dynamic Standing Balance Ability Fair Device Used standrad cane to left hand Standing Balance Comments Balance difficulty accompanied w/ muscular fatigue and weakness Balance Tests Barry Balance Test Barry Impairment Rating 40 to 59% Impaired (Score 23- 33) Functional Reach Functional Reach Impairment Rating 1 to <20% Impaired (Score 9) Romberg Romberg unable Single Limb Standing Single Limb- Right unable Single Limb- Left unable Semi-Tandem Standing Semi-Tandem Standing Balance unable Tandem Tandem Standing Unable Other Other Balance Tests Performed TUG TEST: w/ cane = 22 seconds . High risk fall Barry Balance Assessment Evaluation Sitting to Standing Ability Independent w/Hands Unsupported Stance Safely- 2 minutes Sitting Unsupported, Feet on Floor Safely- 2 minutes Standing to Sitting Ability Safely, Minimal Hand Use Transfer Ability Safely, Hand Use Unsupported Stance- Eyes Closed Supervision, 10 seconds Unsupported Stance- Eyes Open Independent, 1 minute Reaching Forward Standing Confidently, 10 inches Pick- Up Object From Floor Requires Assistance Look Behind Shoulder - Standing Shifts Weight Well Turning 360 Degrees Turns slowly, but safely Unsupported Stance, Alternating Feet on Assist to Prevent Fall Stair Unsupported Tandem Stance Balance Lost- Step/Stand Unilateral Leg Stance Unable,assist to not fall Total Score Barry Total Score (out of 56 points) 35 Barry Impairment Rating 20 to 39% Impaired (Score 34- 44) Tinetti Balance Assessment Sitting Balance Sitting Balance Steady, safe Arising from Chair Ability to Arise Able, uses arms to help Attempts to Arise Arises on 1st attempt Standing Balance Immediate Standing Balance Steady w/o support Standing Balance Steady, wide stance Nudged Response Steady Standing with Eyes Closed Steady Turning Step Pattern Turning 360 Degrees Continuous steps Stability Turning 360 Degrees Steady Sitting Down Sitting Down Uses arms or unsteady Gait and Step Initiation of Gait No hesitancy Right Foot Step Length Does not pass stance ft. Right Foot Step Height Does not clear floor Left Foot Step Length Does pass stance foot Left Foot Step Height Completely clears floor Step Description Step Symmetry Step length not equal Gait Description Path Description Straight Scoring and Interpretation Tinetti Composite Score (points) 18 Interpretation of Scores High risk for falls(< 19) Tinetti Impairment Rating from Composite 20 to <40% Impaired (Score 17- Score 22) Escoto Fall Scale Copyright Permission Tigist MAY, Tigist RM, Trung SJ. Development of a scale to identify the fall- prone patient. Can J Aging 1989;8;366-7. Kat Escoto (2009). Preventing patient falls. (2nd ed). [place]: [place]. PT-OP-E Functional Tests Start: 03/29/18 07:32 Freq: Status: Active Protocol: Document 03/29/18 09:10 EA (Rec: 03/29/18 09:15 EA [id number]) Functional Tests Timed Up and Go (TUG) Score 22 Comments w/ cane TUG Impairment Rating 100% Impaired (Score 20) PT-OP-G Mobility & Gait Start: 03/29/18 07:32 Freq: Status: Active Protocol: Document 03/29/18 13:44 EA (Rec: 03/29/18 13:48 EA [id number]) OP Gait Assessment Gait Gait Assistance Required: Independent Able to Maintain Weight Bearing Status Yes During Gait Assistive Devices Assistive Device Gait Belt Straight Cane Orthotic/Prosthetic Devices or Brace: Yes Gait Deviations General Gait Pattern Decreased Feet Clearance Lateral Trunk Lean Wide Based Gait Factors Limiting Gait Function Factors Limiting Gait Function Abnormal Tonal Influences Decreased Strength Comments Gait Comments Patient ambulated typical flexion synergy pattern w/ right elbow flex and right foot slight PF during swing phase; however when foot orthotic is on, patient able to clear the foot effectively. Caridad bergeron iproved patien amb. Stair Climbing Evaluation Evaluation Level of Assist On Stairs Standby Assistance Devices Stair Climbing Assistive Devices Straight Cane Technique/Endurance Stair Climbing Direction Ascend and Descend Stair Climbing Technique Step Over Step PT-OP-H Neuro Start: 03/29/18 07:32 Freq: Status: Active Protocol: Document 03/29/18 09:10 EA (Rec: 03/29/18 09:15 EA [id number]) Muscle Tone Tone Assessment Right Lower Extremity Extensor Tone Description Mild Hypertonicity Manifestations of Tone Fluctuation Muscle Tone Comments Garde 1 spaticity PT-OP-M Strength Start: 03/29/18 07:32 Freq: Status: Active Protocol: Document 03/29/18 09:10 EA (Rec: 03/29/18 09:15 EA [id number]) Shoulder Strength Shoulder Manual Muscle Testing Right Flexion 3+ Fair+ Extension 3+ Fair+ Abduction (C5) 3+ Fair+ Adduction 3+ Fair+ External Rotation 3+ Fair+ Hip Strength Hip Manual Muscle Testing Right Flexion (L2) 3+ Fair+ Abduction 3+ Fair+ External Rotation 3+ Fair+ Knee Strength Knee Manual Muscle Testing Right Flexion (S2) 3+ Fair+ Extension (L3) 4- Good- PT-OP-Q Treatments Start: 03/29/18 07:32 Freq: Status: Active Protocol: Document 05/07/18 08:12 EA (Rec: 05/07/18 08:19 EA [id number]) Cardio Equipment Recumbent Stepper (Sci-Fit) Duration (Minutes) 8 Resistance 2 Other interval: 10 secs on and 1 mins recovery x 5. Therapeutic Exercises Standing Exercises 2 Standing Exercise Name Semi squat: DB shlder ex's Resistance 1-3 lbs Reps/Minutes x 12 x 3 sets Comments Front raise, side raise. press 1 Standing Exercise Name Rails side step squat w/ heel raises Resistance BW and YTB Reps/Minutes x 10 Other Exercises 2 Other Exercise Name step fwd/bwd/swd with single hand support Side bilateral Reps/Minutes x 5 each side each exercises x 2 sets 1 Other Exercise Name Obstacle/yuli stepping FWD Equipment Used single rail Gait Training Gait Activity 2 Description STC floor amb Level of Assistance SBA Distance/Duration 130 Treatment Focus endurance, right foot dragged awaren 1 Description Stairs: step through Device Used handrails bilat Level of Assistance SBA Distance/Duration 7 Comments full arm support when in left foot descent Neuro Re-Education Treatment Balance Activities 1 Details Foam: NBOS/Staggered stance Comments w/ hand challenge PT-OP-T Assessment and Plan Start: 03/29/18 07:32 Freq: Status: Active Protocol: Document 05/07/18 08:12 EA (Rec: 05/07/18 08:19 EA [id number]) Physical Therapy Assessment Assessment Summary Assessment Patient was able to perform interval exercise at the cardio machine and very interested to incorporate at home; patient educated and showed good carryover. Physical Therapy Plan Next Visit Focus/Plan Next Visit Plan Progress as tolerated. Please Sign and Return: I have reviewed this Plan of Care and certify that the skilled therapy services above are required to meet the patient?s needs. Physician Signature Date Printed Name and Credentials Clinical Instructor Signature Printed Name and Credentials
--- NOTE | 2018-05-22 16:01 | PT.OPPN ---
Current Diagnoses Multiple sclerosis (05/22/18) Muscle weakness (generalized) (05/22/18) Unsteadiness on feet (05/22/18) Physical Therapy Progress Note PT-OP-A Visit Information Start: 03/29/18 07:32 Freq: Status: Active Protocol: Document 05/22/18 11:15 DCW (Rec: 05/22/18 16:00 DCW [id number]) Out-Patient Physical Therapy Visit Information Visit Information Visit Type Progress Note Visit Start Time 11:15 Visit Stop Time 12:00 Total Visit Minutes 40 Visit Number 22/60 Evaluation Information Evaluation Date 11/13/17 PT-OP-C Subjective Start: 03/29/18 07:32 Freq: Status: Active Protocol: Document 05/22/18 11:15 DCW (Rec: 05/22/18 16:00 DCW [id number]) OP-PT Subjective Patient Comments Patient Comments Pt notes he has noticed a fairly large improvement in his balance and ambulation ability since beginning therapy. PT-OP-D Balance Start: 03/29/18 07:32 Freq: Status: Active Protocol: Document 05/22/18 11:15 DCW (Rec: 05/22/18 16:00 DCW [id number]) OP-PT Balance Assessment Sitting Balance Static Sitting Balance Ability Good Dynamic Sitting Balance Ability Good Standing Balance Static Standing Balance Ability Good Dynamic Standing Balance Ability Fair Device Used None Standing Balance Comments Pt fatigues quickly while attempting to balance Balance Tests Barry Balance Test Barry Balance Test Score 40/56 Barry Impairment Rating 20 to 39% Impaired (Score 34- 44) Functional Reach Functional Reach Test 9 Functional Reach Impairment Rating 1 to <20% Impaired (Score 9) Single Limb Standing Single Limb- Right Unable Single Limb- Left Unable Tandem Tandem Standing Unable Other Other Balance Tests Performed TUG test: /s assistive device: 21.24 seconds Barry Balance Assessment Evaluation Sitting to Standing Ability Independent w/out Hands Unsupported Stance Safely- 2 minutes Sitting Unsupported, Feet on Floor Safely- 2 minutes Standing to Sitting Ability Safely, Minimal Hand Use Transfer Ability Safely, Minimal Hand Use Unsupported Stance- Eyes Closed Safely, 10 seconds Unsupported Stance- Eyes Open Assist to attain, 15 secs Reaching Forward Standing Safely, 5 inches Pick- Up Object From Floor Supervision Look Behind Shoulder - Standing Turns Sideways Only Turning 360 Degrees Turns slowly, but safely Unsupported Stance, Alternating Feet on 2 Steps w/Minimum Assist Stair Unsupported Tandem Stance Holds Tandem- 30 seconds Unilateral Leg Stance Lifts Leg/Unable to Hold Total Score Barry Total Score (out of 56 points) 40 Barry Impairment Rating 20 to 39% Impaired (Score 34- 44) Tinetti Balance Assessment Sitting Balance Sitting Balance Steady, safe Arising from Chair Ability to Arise Able, w/o using arms Attempts to Arise Arises on 1st attempt Standing Balance Immediate Standing Balance Steady w/o support Standing Balance Steady, wide stance Nudged Response Steady Standing with Eyes Closed Steady Turning Step Pattern Turning 360 Degrees Discontinuous steps Stability Turning 360 Degrees Steady Sitting Down Sitting Down Safe, steady Gait and Step Initiation of Gait No hesitancy Right Foot Step Length Does pass stance foot Right Foot Step Height Completely clears floor Left Foot Step Length Does pass stance foot Left Foot Step Height Completely clears floor Step Description Step Symmetry Step length not equal Step Continuity Steps appear continuous Gait Description Path Description Mild/moderate deviation Trunk Description Marked sway or uses aide Walking Stance Heels apart Scoring and Interpretation Tinetti Composite Score (points) 21 Interpretation of Scores At risk for falls (19-24) Tinetti Impairment Rating from Composite 20 to <40% Impaired (Score 17- Score 22) Escoto Fall Scale Copyright Permission Tigist MAY, Tigist RM, Trung SJ. Development of a scale to identify the fall- prone patient. Can J Aging 1989;8;366-7. Kat Escoto (2009). Preventing patient falls. (2nd ed). [place]: [place]. PT-OP-E Functional Tests Start: 03/29/18 07:32 Freq: Status: Active Protocol: Document 05/22/18 11:15 DCW (Rec: 05/22/18 16:00 DEW [id number]) Functional Tests Timed Up and Go (TUG) Score 21.47 Comments no assistive device TUG Impairment Rating 100% Impaired (Score 20) Tinetti Balance and Gait Assessment Balance Score 14 Gait Score 7 Composite Score 21 Balance Score Impairment Rating 1 to <20% Impaired (Score 13- 15) Gait Score Impairment Rating 40 to <60% Impaired (Score 5-7 ) Composite Score Impairment Rating 20 to <40% Impaired (Score 17- 22) PT-OP-G Mobility & Gait Start: 03/29/18 07:32 Freq: Status: Active Protocol: Document 05/22/18 11:15 DCW (Rec: 05/22/18 16:00 DCW [id number]) OP Gait Assessment Gait Gait Assistance Required: Independent Able to Maintain Weight Bearing Status Yes During Gait Assistive Devices Assistive Device Gait Belt Gait Deviations General Gait Pattern Decreased Stride Length Decreased Feet Clearance Lateral Trunk Lean Wide Based Gait Factors Limiting Gait Function Factors Limiting Gait Function Abnormal Tonal Influences Decreased Activity Tolerance Decreased Strength Poor Balance PT-OP-M Strength Start: 03/29/18 07:32 Freq: Status: Active Protocol: Document 05/22/18 11:15 DCW (Rec: 05/22/18 16:00 DCW [id number]) Shoulder Strength Shoulder Manual Muscle Testing Left Flexion 4 Good Extension 4+ Good+ Abduction (C5) 4 Good Adduction 5 Normal External Rotation 4+ Good+ Right Flexion 3+ Fair+ Extension 4- Good- Abduction (C5) 4- Good- Adduction 4- Good- External Rotation 4- Good- Hip Strength Hip Manual Muscle Testing Left Flexion (L2) 3+ Fair+ Abduction 4 Good External Rotation 5 Normal Right Flexion (L2) 3+ Fair+ Abduction 4 Good External Rotation 4- Good- Knee Strength Knee Manual Muscle Testing Left Flexion (S2) 5 Normal Extension (L3) 5 Normal Right Flexion (S2) 4- Good- Extension (L3) 4 Good PT-OP-T Assessment and Plan Start: 03/29/18 07:32 Freq: Status: Active Protocol: Document 05/22/18 11:15 DCW (Rec: 05/22/18 16:00 DCW [id number]) Physical Therapy Assessment Rehab Potential Rehabilitation Potential Fair Impairments Impairments Activity Tolerance Balance Coordination Gait Tone Goals Three Impairment MMT to right Hp ABD/Flexors of 3-/5; knee flexors; Right ankle DF 2/5 Senior Living Goal (LTG) Patient will increase MMT to right hip ABD/Flexors, knee flexors and DF by 1/2 grade to improve gait LTG Duration 07/03/18 Two Impairment Decreased walking distance tolerance Driller'S Assistant Goal (LTG) Patient will ambulate w/ aids x 300 ft w/ no rest on level surfaces indep. LTG Duration 07/03/18 One Senior Living Goal (LTG) Patient will exhibit increase strength to RUE/LE by 1/2 grade to improve gait and mobility LTG Duration 07/03/18 Progress Towards Goals Progress Towards Goals Slow Progress due to Medical Issues Assessment Summary Assessment Pt making small improvements in both his balance testing and strength. Pt feels more stable and secure when walking , and feels his balance has improved since beginning therapy. Pt has had occasional scheduling conflicts and transportation issues which have resulted in cancelled appointments, however he is working hard to make it whenever he can. Pt should continue to benefit from skilled therapy focusing on strengthening, balance training, and improving activity tolerance. Physical Therapy Plan Frequency and Duration Frequency of Treatment 2x/Week Duration of Treatment 10 weeks Plan of Care Start Date 05/22/18 Plan of Care End Date 07/31/18 Therapeutic Interventions Therapeutic Interventions Balance Training Coordination Training Gait Training Home Exercise Program Manual Therapy Neuromuscular Re-education Patient/Caregiver Education Self-Care/Home Management Therapeutic Activities Therapeutic Exercises Next Visit Focus/Plan Next Note Type Treatment Note Next Visit Plan Continue with current program.
--- NOTE | 2018-05-22 16:02 | PT.OPPOC ---
Current Diagnoses Multiple sclerosis (05/22/18) Muscle weakness (generalized) (05/22/18) Unsteadiness on feet (05/22/18) Provider Visit Care Team Role Provider Type Jannet Luque MD Attending Provider Non-Staff Family Provider Primary Care Provider Specialty: Medical Address: [address] [place] [address], [id number], [place], [address] Email: Plan Of Care PT-OP-T Assessment and Plan Start: 03/29/18 07:32 Freq: Status: Active Protocol: Document 05/22/18 11:15 DCW (Rec: 05/22/18 16:00 DCW [id number]) Physical Therapy Assessment Rehab Potential Rehabilitation Potential Fair Impairments Impairments Activity Tolerance Balance Coordination Gait Tone Goals Three Impairment MMT to right Hp ABD/Flexors of 3-/5; knee flexors; Right ankle DF 2/5 Detention Goal (LTG) Patient will increase MMT to right hip ABD/Flexors, knee flexors and DF by 1/2 grade to improve gait LTG Duration 07/03/18 Two Impairment Decreased walking distance tolerance Detention Goal (LTG) Patient will ambulate w/ aids x 300 ft w/ no rest on level surfaces indep. LTG Duration 07/03/18 One Detention Goal (LTG) Patient will exhibit increase strength to RUE/LE by 1/2 grade to improve gait and mobility LTG Duration 07/03/18 Progress Towards Goals Progress Towards Goals Slow Progress due to Medical Issues Assessment Summary Assessment Pt making small improvements in both his balance testing and strength. Pt feels more stable and secure when walking , and feels his balance has improved since beginning therapy. Pt has had occasional scheduling conflicts and transportation issues which have resulted in cancelled appointments, however he is working hard to make it whenever he can. Pt should continue to benefit from skilled therapy focusing on strengthening, balance training, and improving activity tolerance. Physical Therapy Plan Frequency and Duration Frequency of Treatment 2x/Week Duration of Treatment 10 weeks Plan of Care Start Date 05/22/18 Plan of Care End Date 07/31/18 Therapeutic Interventions Therapeutic Interventions Balance Training Coordination Training Gait Training Home Exercise Program Manual Therapy Neuromuscular Re-education Patient/Caregiver Education Self-Care/Home Management Therapeutic Activities Therapeutic Exercises Next Visit Focus/Plan Next Note Type Treatment Note Next Visit Plan Continue with current program. Plan of Care Dates Plan of Care Start Date 05/22/18 Plan of Care End Date 07/31/18 Please Sign and Return: I have reviewed this Plan of Care and certify that the skilled therapy services above are required to meet the patient?s needs. Physician Signature Date Printed Name and Credentials Clinical Instructor Signature Printed Name and Credentials
--- NOTE | 2018-06-14 10:51 | PT.OTN ---
Current Diagnoses Multiple sclerosis (06/14/18) Muscle weakness (generalized) (06/14/18) Unsteadiness on feet (06/14/18) Physical Therapy Treatment Note PT-OP-A Visit Information Start: 03/29/18 07:32 Freq: Status: Active Protocol: Document 06/14/18 10:45 EA (Rec: 06/14/18 10:50 EA [id number]) Out-Patient Physical Therapy Visit Information Visit Information Visit Type Treatment Note Visit Start Time 07:30 Visit Stop Time 08:15 Total Visit Minutes 40 Visit Number [id number] PT-OP-C Subjective Start: 03/29/18 07:32 Freq: Status: Active Protocol: Document 06/14/18 10:45 EA (Rec: 06/14/18 10:50 EA [id number]) OP-PT Subjective Patient Comments Patient Comments Patient reports that he has been complaint with HEP and he feels that his energy level is improving. PT-OP-D Balance Start: 03/29/18 07:32 Freq: Status: Active Protocol: Document 05/22/18 11:15 DCW (Rec: 05/22/18 16:00 DCW [id number]) OP-PT Balance Assessment Sitting Balance Static Sitting Balance Ability Good Dynamic Sitting Balance Ability Good Standing Balance Static Standing Balance Ability Good Dynamic Standing Balance Ability Fair Device Used None Standing Balance Comments Pt fatigues quickly while attempting to balance Balance Tests Barry Balance Test Barry Balance Test Score 40/56 Barry Impairment Rating 20 to 39% Impaired (Score 34- 44) Functional Reach Functional Reach Test 9 Functional Reach Impairment Rating 1 to <20% Impaired (Score 9) Single Limb Standing Single Limb- Right Unable Single Limb- Left Unable Tandem Tandem Standing Unable Other Other Balance Tests Performed TUG test: /s assistive device: 21.24 seconds Barry Balance Assessment Evaluation Sitting to Standing Ability Independent w/out Hands Unsupported Stance Safely- 2 minutes Sitting Unsupported, Feet on Floor Safely- 2 minutes Standing to Sitting Ability Safely, Minimal Hand Use Transfer Ability Safely, Minimal Hand Use Unsupported Stance- Eyes Closed Safely, 10 seconds Unsupported Stance- Eyes Open Assist to attain, 15 secs Reaching Forward Standing Safely, 5 inches Pick- Up Object From Floor Supervision Look Behind Shoulder - Standing Turns Sideways Only Turning 360 Degrees Turns slowly, but safely Unsupported Stance, Alternating Feet on 2 Steps w/Minimum Assist Stair Unsupported Tandem Stance Holds Tandem- 30 seconds Unilateral Leg Stance Lifts Leg/Unable to Hold Total Score Barry Total Score (out of 56 points) 40 Barry Impairment Rating 20 to 39% Impaired (Score 34- 44) Tinetti Balance Assessment Sitting Balance Sitting Balance Steady, safe Arising from Chair Ability to Arise Able, w/o using arms Attempts to Arise Arises on 1st attempt Standing Balance Immediate Standing Balance Steady w/o support Standing Balance Steady, wide stance Nudged Response Steady Standing with Eyes Closed Steady Turning Step Pattern Turning 360 Degrees Discontinuous steps Stability Turning 360 Degrees Steady Sitting Down Sitting Down Safe, steady Gait and Step Initiation of Gait No hesitancy Right Foot Step Length Does pass stance foot Right Foot Step Height Completely clears floor Left Foot Step Length Does pass stance foot Left Foot Step Height Completely clears floor Step Description Step Symmetry Step length not equal Step Continuity Steps appear continuous Gait Description Path Description Mild/moderate deviation Trunk Description Marked sway or uses aide Walking Stance Heels apart Scoring and Interpretation Tinetti Composite Score (points) 21 Interpretation of Scores At risk for falls (19-24) Tinetti Impairment Rating from Composite 20 to <40% Impaired (Score 17- Score 22) Escoto Fall Scale Copyright Permission Tigist MAY, Tigist RM, Trnug SJ. Development of a scale to identify the fall- prone patient. Can J Aging 1989;8;366-7. Kat Escoto (2009). Preventing patient falls. (2nd ed). Izard: Murray. PT-OP-E Functional Tests Start: 03/29/18 07:32 Freq: Status: Active Protocol: Document 05/22/18 11:15 DCW (Rec: 05/22/18 16:00 DCW [id number]) Functional Tests Timed Up and Go (TUG) Score 21.47 Comments no assistive device TUG Impairment Rating 100% Impaired (Score 20) Tinetti Balance and Gait Assessment Balance Score 14 Gait Score 7 Composite Score 21 Balance Score Impairment Rating 1 to <20% Impaired (Score 13- 15) Gait Score Impairment Rating 40 to <60% Impaired (Score 5-7 ) Composite Score Impairment Rating 20 to <40% Impaired (Score 17- 22) PT-OP-G Mobility & Gait Start: 03/29/18 07:32 Freq: Status: Active Protocol: Document 05/22/18 11:15 DCW (Rec: 05/22/18 16:00 DCW [id number]) OP Gait Assessment Gait Gait Assistance Required: Independent Able to Maintain Weight Bearing Status Yes During Gait Assistive Devices Assistive Device Gait Belt Gait Deviations General Gait Pattern Decreased Stride Length Decreased Feet Clearance Lateral Trunk Lean Wide Based Gait Factors Limiting Gait Function Factors Limiting Gait Function Abnormal Tonal Influences Decreased Activity Tolerance Decreased Strength Poor Balance PT-OP-H Neuro Start: 03/29/18 07:32 Freq: Status: Active Protocol: Document 03/29/18 09:10 EA (Rec: 03/29/18 09:15 EA [id number]) Muscle Tone Tone Assessment Right Lower Extremity Extensor Tone Description Mild Hypertonicity Manifestations of Tone Fluctuation Muscle Tone Comments Garde 1 spaticity PT-OP-M Strength Start: 03/29/18 07:32 Freq: Status: Active Protocol: Document 05/22/18 11:15 DCW (Rec: 05/22/18 16:00 DCW [id number]) Shoulder Strength Shoulder Manual Muscle Testing Left Flexion 4 Good Extension 4+ Good+ Abduction (C5) 4 Good Adduction 5 Normal External Rotation 4+ Good+ Right Flexion 3+ Fair+ Extension 4- Good- Abduction (C5) 4- Good- Adduction 4- Good- External Rotation 4- Good- Hip Strength Hip Manual Muscle Testing Left Flexion (L2) 3+ Fair+ Abduction 4 Good External Rotation 5 Normal Right Flexion (L2) 3+ Fair+ Abduction 4 Good External Rotation 4- Good- Knee Strength Knee Manual Muscle Testing Left Flexion (S2) 5 Normal Extension (L3) 5 Normal Right Flexion (S2) 4- Good- Extension (L3) 4 Good PT-OP-Q Treatments Start: 03/29/18 07:32 Freq: Status: Active Protocol: Document 06/14/18 10:45 EA (Rec: 06/14/18 10:50 EA [id number]) Cardio Equipment Recumbent Stepper (Sci-Fit) Duration (Minutes) 8 Resistance 2 Other interval: 10 secs on and 1 mins recovery x 5. Gym Equipment Shuttle Balance 1 Details Blue clips: NBOS/WBOS Reps/Duration 10 mins Comments Arm/trunk challenge Therapeutic Exercises Standing Exercises 2 Standing Exercise Name Semi squat: DB shlder ex's Resistance 1-3 lbs Reps/Minutes x 12 x 3 sets Comments Front raise, side raise. press 1 Standing Exercise Name Rails side step squat w/ heel raises Resistance BW and YTB Reps/Minutes x 10 Other Exercises 2 Other Exercise Name step fwd/bwd/swd with single hand support Side bilateral Reps/Minutes x 5 each side each exercises x 2 sets 1 Other Exercise Name Obstacle/yuli stepping FWD Equipment Used single rail Gait Training Gait Activity 1 Description Stairs: step through Device Used handrails bilat Level of Assistance SBA Distance/Duration 7 Comments full arm support when in left foot descent w/ YAW to both ankles Neuro Re-Education Treatment Balance Activities 1 Details Foam: NBOS/Staggered stance Comments w/ hand challenge PT-OP-T Assessment and Plan Start: 03/29/18 07:32 Freq: Status: Active Protocol: Document 06/14/18 10:45 EA (Rec: 06/14/18 10:50 EA [id number]) Physical Therapy Assessment Assessment Summary Assessment Patient had exhibit improved static dynamic balance today; patient progressing well. Physical Therapy Plan Next Visit Focus/Plan Next Note Type Treatment Note Next Visit Plan Cont with current plan.
--- NOTE | 2018-06-19 09:45 | PT.OTN ---
Current Diagnoses Multiple sclerosis (06/19/18) Muscle weakness (generalized) (06/19/18) Unsteadiness on feet (06/19/18) Physical Therapy Treatment Note PT-OP-A Visit Information Start: 03/29/18 07:32 Freq: Status: Active Protocol: Document 06/19/18 09:41 EA (Rec: 06/19/18 09:45 EA [id number]) Out-Patient Physical Therapy Visit Information Visit Information Visit Type Treatment Note Visit Start Time 07:30 Visit Stop Time 08:15 Total Visit Minutes 40 Visit Number PT-OP-C Subjective Start: 03/29/18 07:32 Freq: Status: Active Protocol: Document 06/19/18 09:41 EA (Rec: 06/19/18 09:45 EA [id number]) OP-PT Subjective Patient Comments Patient Comments Patient reports he was quite tired yesterday due to increased Weather temp; states he has been doing cardio exercises and feeling improve. Patient Reported Progress Improving PT-OP-D Balance Start: 03/29/18 07:32 Freq: Status: Active Protocol: Document 05/22/18 11:15 DCW (Rec: 05/22/18 16:00 DCW [id number]) OP-PT Balance Assessment Sitting Balance Static Sitting Balance Ability Good Dynamic Sitting Balance Ability Good Standing Balance Static Standing Balance Ability Good Dynamic Standing Balance Ability Fair Device Used None Standing Balance Comments Pt fatigues quickly while attempting to balance Balance Tests Barry Balance Test Barry Balance Test Score 40/56 Barry Impairment Rating 20 to 39% Impaired (Score 34- 44) Functional Reach Functional Reach Test 9 Functional Reach Impairment Rating 1 to <20% Impaired (Score 9) Single Limb Standing Single Limb- Right Unable Single Limb- Left Unable Tandem Tandem Standing Unable Other Other Balance Tests Performed TUG test: /s assistive device: 21.24 seconds Barry Balance Assessment Evaluation Sitting to Standing Ability Independent w/out Hands Unsupported Stance Safely- 2 minutes Sitting Unsupported, Feet on Floor Safely- 2 minutes Standing to Sitting Ability Safely, Minimal Hand Use Transfer Ability Safely, Minimal Hand Use Unsupported Stance- Eyes Closed Safely, 10 seconds Unsupported Stance- Eyes Open Assist to attain, 15 secs Reaching Forward Standing Safely, 5 inches Pick- Up Object From Floor Supervision Look Behind Shoulder - Standing Turns Sideways Only Turning 360 Degrees Turns slowly, but safely Unsupported Stance, Alternating Feet on 2 Steps w/Minimum Assist Stair Unsupported Tandem Stance Holds Tandem- 30 seconds Unilateral Leg Stance Lifts Leg/Unable to Hold Total Score Barry Total Score (out of 56 points) 40 Barry Impairment Rating 20 to 39% Impaired (Score 34- 44) Tinetti Balance Assessment Sitting Balance Sitting Balance Steady, safe Arising from Chair Ability to Arise Able, w/o using arms Attempts to Arise Arises on 1st attempt Standing Balance Immediate Standing Balance Steady w/o support Standing Balance Steady, wide stance Nudged Response Steady Standing with Eyes Closed Steady Turning Step Pattern Turning 360 Degrees Discontinuous steps Stability Turning 360 Degrees Steady Sitting Down Sitting Down Safe, steady Gait and Step Initiation of Gait No hesitancy Right Foot Step Length Does pass stance foot Right Foot Step Height Completely clears floor Left Foot Step Length Does pass stance foot Left Foot Step Height Completely clears floor Step Description Step Symmetry Step length not equal Step Continuity Steps appear continuous Gait Description Path Description Mild/moderate deviation Trunk Description Marked sway or uses aide Walking Stance Heels apart Scoring and Interpretation Tinetti Composite Score (points) 21 Interpretation of Scores At risk for falls (19-24) Tinetti Impairment Rating from Composite 20 to <40% Impaired (Score 17- Score 22) Escoto Fall Scale Copyright Permission Tigist MAY, Tigist RM, Trung SJ. Development of a scale to identify the fall- prone patient. Can J Aging 1989;8;366-7. Kat Escoto (2009). Preventing patient falls. (2nd ed). Dawson: Murray. PT-OP-E Functional Tests Start: 03/29/18 07:32 Freq: Status: Active Protocol: Document 05/22/18 11:15 DCW (Rec: 05/22/18 16:00 [facility] [id number]) Functional Tests Timed Up and Go (TUG) Score 21.47 Comments no assistive device TUG Impairment Rating 100% Impaired (Score 20) Tinetti Balance and Gait Assessment Balance Score 14 Gait Score 7 Composite Score 21 Balance Score Impairment Rating 1 to <20% Impaired (Score 13- 15) Gait Score Impairment Rating 40 to <60% Impaired (Score 5-7 ) Composite Score Impairment Rating 20 to <40% Impaired (Score 17- 22) PT-OP-G Mobility & Gait Start: 03/29/18 07:32 Freq: Status: Active Protocol: Document 05/22/18 11:15 DCW (Rec: 05/22/18 16:00 DCW [id number]) OP Gait Assessment Gait Gait Assistance Required: Independent Able to Maintain Weight Bearing Status Yes During Gait Assistive Devices Assistive Device Gait Belt Gait Deviations General Gait Pattern Decreased Stride Length Decreased Feet Clearance Lateral Trunk Lean Wide Based Gait Factors Limiting Gait Function Factors Limiting Gait Function Abnormal Tonal Influences Decreased Activity Tolerance Decreased Strength Poor Balance PT-OP-H Neuro Start: 03/29/18 07:32 Freq: Status: Active Protocol: Document 03/29/18 09:10 EA (Rec: 03/29/18 09:15 EA [id number]) Muscle Tone Tone Assessment Right Lower Extremity Extensor Tone Description Mild Hypertonicity Manifestations of Tone Fluctuation Muscle Tone Comments Garde 1 spaticity PT-OP-M Strength Start: 03/29/18 07:32 Freq: Status: Active Protocol: Document 05/22/18 11:15 DCW (Rec: 05/22/18 16:00 DCW [id number]) Shoulder Strength Shoulder Manual Muscle Testing Left Flexion 4 Good Extension 4+ Good+ Abduction (C5) 4 Good Adduction 5 Normal External Rotation 4+ Good+ Right Flexion 3+ Fair+ Extension 4- Good- Abduction (C5) 4- Good- Adduction 4- Good- External Rotation 4- Good- Hip Strength Hip Manual Muscle Testing Left Flexion (L2) 3+ Fair+ Abduction 4 Good External Rotation 5 Normal Right Flexion (L2) 3+ Fair+ Abduction 4 Good External Rotation 4- Good- Knee Strength Knee Manual Muscle Testing Left Flexion (S2) 5 Normal Extension (L3) 5 Normal Right Flexion (S2) 4- Good- Extension (L3) 4 Good PT-OP-Q Treatments Start: 03/29/18 07:32 Freq: Status: Active Protocol: Document 06/19/18 09:41 EA (Rec: 06/19/18 09:45 EA [id number]) Cardio Equipment Recumbent Stepper (Sci-Fit) Duration (Minutes) 8 Resistance 2 Other interval: 10 secs on and 1 mins recovery x 5. Gym Equipment Shuttle Balance 1 Details Blue clips: NBOS/WBOS Reps/Duration 10 mins Comments Arm/trunk challenge: ball toss Therapeutic Exercises Standing Exercises 2 Standing Exercise Name Semi squat: DB shlder ex's Resistance 1-3 lbs Reps/Minutes x 12 x 3 sets Comments Front raise, side raise. press 1 Standing Exercise Name Rails side step squat w/ heel raises Resistance BW and YTB Reps/Minutes x 10 Other Exercises 2 Other Exercise Name step fwd/bwd/swd with single hand support Side bilateral Reps/Minutes x 5 each side each exercises x 2 sets 1 Other Exercise Name Obstacle/yuli stepping FWD Equipment Used single rail PT-OP-T Assessment and Plan Start: 03/29/18 07:32 Freq: Status: Active Protocol: Document 06/19/18 09:41 EA (Rec: 06/19/18 09:45 EA [id number]) Physical Therapy Assessment Goals Three Impairment MMT to right Hp ABD/Flexors of 3-/5; knee flexors; Right ankle DF 2/5 Breaker Oiler Goal (LTG) Patient will increase MMT to right hip ABD/Flexors, knee flexors and DF by 1/2 grade to improve gait LTG Duration 07/03/18 Two Impairment Decreased walking distance tolerance [facility] Living Goal (LTG) Patient will ambulate w/ aids x 300 ft w/ no rest on level surfaces indep. LTG Duration 07/03/18 One Breaker Oiler Goal (LTG) Patient will exhibit increase strength to RUE/LE by 1/2 grade to improve gait and mobility LTG Duration 07/03/18 Assessment Summary Assessment Patient tolerated treatment well. Physical Therapy Plan Next Visit Focus/Plan Next Note Type Treatment Note Next Visit Plan Progress with current plan.
--- NOTE | 2018-06-26 08:16 | PT.OTN ---
Current Diagnoses Multiple sclerosis (06/26/18) Muscle weakness (generalized) (06/26/18) Unsteadiness on feet (06/26/18) Physical Therapy Treatment Note PT-OP-A Visit Information Start: 03/29/18 07:32 Freq: Status: Active Protocol: Document 06/26/18 07:35 EA (Rec: 06/26/18 08:16 EA [id number]) Out-Patient Physical Therapy Visit Information Visit Information Visit Type Treatment Note Visit Start Time 07:30 Visit Stop Time 08:15 Total Visit Minutes 40 Visit Number [id number] PT-OP-C Subjective Start: 03/29/18 07:32 Freq: Status: Active Protocol: Document 06/26/18 07:35 EA (Rec: 06/26/18 08:16 EA [id number]) OP-PT Subjective Patient Comments Patient Comments Pt reports heat of the day affect his daily activites due to strength declined. Patient Reported Progress Same PT-OP-D Balance Start: 03/29/18 07:32 Freq: Status: Active Protocol: Document 05/22/18 11:15 DCW (Rec: 05/22/18 16:00 DCW [id number]) OP-PT Balance Assessment Sitting Balance Static Sitting Balance Ability Good Dynamic Sitting Balance Ability Good Standing Balance Static Standing Balance Ability Good Dynamic Standing Balance Ability Fair Device Used None Standing Balance Comments Pt fatigues quickly while attempting to balance Balance Tests Barry Balance Test Barry Balance Test Score 40/56 Barry Impairment Rating 20 to 39% Impaired (Score 34- 44) Functional Reach Functional Reach Test 9 Functional Reach Impairment Rating 1 to <20% Impaired (Score 9) Single Limb Standing Single Limb- Right Unable Single Limb- Left Unable Tandem Tandem Standing Unable Other Other Balance Tests Performed TUG test: /s assistive device: 21.24 seconds Barry Balance Assessment Evaluation Sitting to Standing Ability Independent w/out Hands Unsupported Stance Safely- 2 minutes Sitting Unsupported, Feet on Floor Safely- 2 minutes Standing to Sitting Ability Safely, Minimal Hand Use Transfer Ability Safely, Minimal Hand Use Unsupported Stance- Eyes Closed Safely, 10 seconds Unsupported Stance- Eyes Open Assist to attain, 15 secs Reaching Forward Standing Safely, 5 inches Pick- Up Object From Floor Supervision Look Behind Shoulder - Standing Turns Sideways Only Turning 360 Degrees Turns slowly, but safely Unsupported Stance, Alternating Feet on 2 Steps w/Minimum Assist Stair Unsupported Tandem Stance Holds Tandem- 30 seconds Unilateral Leg Stance Lifts Leg/Unable to Hold Total Score Barry Total Score (out of 56 points) 40 Barry Impairment Rating 20 to 39% Impaired (Score 34- 44) Tinetti Balance Assessment Sitting Balance Sitting Balance Steady, safe Arising from Chair Ability to Arise Able, w/o using arms Attempts to Arise Arises on 1st attempt Standing Balance Immediate Standing Balance Steady w/o support Standing Balance Steady, wide stance Nudged Response Steady Standing with Eyes Closed Steady Turning Step Pattern Turning 360 Degrees Discontinuous steps Stability Turning 360 Degrees Steady Sitting Down Sitting Down Safe, steady Gait and Step Initiation of Gait No hesitancy Right Foot Step Length Does pass stance foot Right Foot Step Height Completely clears floor Left Foot Step Length Does pass stance foot Left Foot Step Height Completely clears floor Step Description Step Symmetry Step length not equal Step Continuity Steps appear continuous Gait Description Path Description Mild/moderate deviation Trunk Description Marked sway or uses aide Walking Stance Heels apart Scoring and Interpretation Tinetti Composite Score (points) 21 Interpretation of Scores At risk for falls (19-24) Tinetti Impairment Rating from Composite 20 to <40% Impaired (Score 17- Score 22) Escoto Fall Scale Copyright Permission Tigist MAY, Tigist RM, Trung SJ. Development of a scale to identify the fall- prone patient. Can J Aging 1989;8;366-7. Kat Escoto (2009). Preventing patient falls. (2nd ed). Mora: Murray. PT-OP-E Functional Tests Start: 03/29/18 07:32 Freq: Status: Active Protocol: Document 05/22/18 11:15 DCW (Rec: 05/22/18 16:00 DCW [id number]) Functional Tests Timed Up and Go (TUG) Score 21.47 Comments no assistive device TUG Impairment Rating 100% Impaired (Score 20) Tinetti Balance and Gait Assessment Balance Score 14 Gait Score 7 Composite Score 21 Balance Score Impairment Rating 1 to <20% Impaired (Score 13- 15) Gait Score Impairment Rating 40 to <60% Impaired (Score 5-7 ) Composite Score Impairment Rating 20 to <40% Impaired (Score 17- 22) PT-OP-G Mobility & Gait Start: 03/29/18 07:32 Freq: Status: Active Protocol: Document 05/22/18 11:15 DCW (Rec: 05/22/18 16:00 DCW [id number]) OP Gait Assessment Gait Gait Assistance Required: Independent Able to Maintain Weight Bearing Status Yes During Gait Assistive Devices Assistive Device Gait Belt Gait Deviations General Gait Pattern Decreased Stride Length Decreased Feet Clearance Lateral Trunk Lean Wide Based Gait Factors Limiting Gait Function Factors Limiting Gait Function Abnormal Tonal Influences Decreased Activity Tolerance Decreased Strength Poor Balance PT-OP-H Neuro Start: 03/29/18 07:32 Freq: Status: Active Protocol: Document 03/29/18 09:10 EA (Rec: 03/29/18 09:15 EA [id number]) Muscle Tone Tone Assessment Right Lower Extremity Extensor Tone Description Mild Hypertonicity Manifestations of Tone Fluctuation Muscle Tone Comments Garde 1 spaticity PT-OP-M Strength Start: 03/29/18 07:32 Freq: Status: Active Protocol: Document 05/22/18 11:15 DCW (Rec: 05/22/18 16:00 DCW [id number]) Shoulder Strength Shoulder Manual Muscle Testing Left Flexion 4 Good Extension 4+ Good+ Abduction (C5) 4 Good Adduction 5 Normal External Rotation 4+ Good+ Right Flexion 3+ Fair+ Extension 4- Good- Abduction (C5) 4- Good- Adduction 4- Good- External Rotation 4- Good- Hip Strength Hip Manual Muscle Testing Left Flexion (L2) 3+ Fair+ Abduction 4 Good External Rotation 5 Normal Right Flexion (L2) 3+ Fair+ Abduction 4 Good External Rotation 4- Good- Knee Strength Knee Manual Muscle Testing Left Flexion (S2) 5 Normal Extension (L3) 5 Normal Right Flexion (S2) 4- Good- Extension (L3) 4 Good PT-OP-Q Treatments Start: 03/29/18 07:32 Freq: Status: Active Protocol: Document 06/26/18 07:35 EA (Rec: 06/26/18 08:16 EA [id number]) Cardio Equipment Recumbent Stepper (Sci-Fit) Duration (Minutes) 8 Resistance 2 Other interval: 10 secs on and 1 mins recovery x 5. Gym Equipment Shuttle Balance 1 Details Blue/red clips: NBOS/WBOS Reps/Duration 10 mins Comments Arm/trunk challenge: ball toss Therapeutic Exercises Standing Exercises 2 Standing Exercise Name Semi squat: DB shlder ex's Resistance 1-3 lbs Reps/Minutes x 12 x 3 sets Comments Front raise, side raise. press 1 Standing Exercise Name Rails side step squat w/ heel raises Resistance BW and YTB Reps/Minutes x 10 Other Exercises 2 Other Exercise Name step fwd/bwd/swd with single hand support Side bilateral Reps/Minutes x 5 each side each exercises x 2 sets 1 Other Exercise Name Obstacle/yuli stepping FWD Equipment Used single rail Gait Training Gait Activity 1 Description Stairs: step through Device Used handrails bilat Level of Assistance SBA Distance/Duration 7 Comments full arm support when in left foot descent w/ BAW Neuro Re-Education Treatment Balance Activities 1 Details Foam: NBOS/Staggered stance Comments w/ hand challenge PT-OP-T Assessment and Plan Start: 03/29/18 07:32 Freq: Status: Active Protocol: Document 06/26/18 07:35 EA (Rec: 06/26/18 08:16 EA [id number]) Physical Therapy Assessment Assessment Summary Assessment Patient is progressing well Physical Therapy Plan Next Visit Focus/Plan Next Note Type Treatment Note Next Visit Plan Progress as tolerated. with coordination exercises to be added
--- NOTE | 2018-10-09 12:06 | PT.OPDS ---
Current Diagnoses Multiple sclerosis (06/26/18) Muscle weakness (generalized) (06/26/18) Unsteadiness on feet (06/26/18) Provider Visit Care Team Role Provider Type Jannet Luque MD Attending Provider Non-Staff Family Provider Primary Care Provider Specialty: Medical Address: [address] [place] [address], [id number], [place], [address] Email: Visit Number Visit Number Discharge Summary PT-OP-C Subjective Start: 03/29/18 07:32 Freq: Status: Active Protocol: Document 06/26/18 07:35 EA (Rec: 06/26/18 08:16 EA [id number]) OP-PT Subjective Patient Comments Patient Comments Pt reports heat of the day affect his daily activites due to strength declined. Patient Reported Progress Same PT-OP-D Balance Start: 03/29/18 07:32 Freq: Status: Active Protocol: Document 05/22/18 11:15 DCW (Rec: 05/22/18 16:00 DCW [id number]) OP-PT Balance Assessment Sitting Balance Static Sitting Balance Ability Good Dynamic Sitting Balance Ability Good Standing Balance Static Standing Balance Ability Good Dynamic Standing Balance Ability Fair Device Used None Standing Balance Comments Pt fatigues quickly while attempting to balance Balance Tests Barry Balance Test Barry Balance Test Score 40/56 Barry Impairment Rating 20 to 39% Impaired (Score 34- 44) Functional Reach Functional Reach Test 9 Functional Reach Impairment Rating 1 to <20% Impaired (Score 9) Single Limb Standing Single Limb- Right Unable Single Limb- Left Unable Tandem Tandem Standing Unable Other Other Balance Tests Performed TUG test: /s assistive device: 21.24 seconds Barry Balance Assessment Evaluation Sitting to Standing Ability Independent w/out Hands Unsupported Stance Safely- 2 minutes Sitting Unsupported, Feet on Floor Safely- 2 minutes Standing to Sitting Ability Safely, Minimal Hand Use Transfer Ability Safely, Minimal Hand Use Unsupported Stance- Eyes Closed Safely, 10 seconds Unsupported Stance- Eyes Open Assist to attain, 15 secs Reaching Forward Standing Safely, 5 inches Pick- Up Object From Floor Supervision Look Behind Shoulder - Standing Turns Sideways Only Turning 360 Degrees Turns slowly, but safely Unsupported Stance, Alternating Feet on 2 Steps w/Minimum Assist Stair Unsupported Tandem Stance Holds Tandem- 30 seconds Unilateral Leg Stance Lifts Leg/Unable to Hold Total Score Barry Total Score (out of 56 points) 40 Barry Impairment Rating 20 to 39% Impaired (Score 34- 44) Tinetti Balance Assessment Sitting Balance Sitting Balance Steady, safe Arising from Chair Ability to Arise Able, w/o using arms Attempts to Arise Arises on 1st attempt Standing Balance Immediate Standing Balance Steady w/o support Standing Balance Steady, wide stance Nudged Response Steady Standing with Eyes Closed Steady Turning Step Pattern Turning 360 Degrees Discontinuous steps Stability Turning 360 Degrees Steady Sitting Down Sitting Down Safe, steady Gait and Step Initiation of Gait No hesitancy Right Foot Step Length Does pass stance foot Right Foot Step Height Completely clears floor Left Foot Step Length Does pass stance foot Left Foot Step Height Completely clears floor Step Description Step Symmetry Step length not equal Step Continuity Steps appear continuous Gait Description Path Description Mild/moderate deviation Trunk Description Marked sway or uses aide Walking Stance Heels apart Scoring and Interpretation Tinetti Composite Score (points) 21 Interpretation of Scores At risk for falls (19-24) Tinetti Impairment Rating from Composite 20 to <40% Impaired (Score 17- Score 22) Escoto Fall Scale Copyright Permission Tigist MAY, Tigist RM, Trung SJ. Development of a scale to identify the fall- prone patient. Can J Aging 1989;8;366-7. Kat Escoto (2009). Preventing patient falls. (2nd ed). [place]: [place]. PT-OP-E Functional Tests Start: 03/29/18 07:32 Freq: Status: Active Protocol: Document 05/22/18 11:15 DCW (Rec: 05/22/18 16:00 [facility] [id number]) Functional Tests Timed Up and Go (TUG) Score 21.47 Comments no assistive device TUG Impairment Rating 100% Impaired (Score 20) Tinetti Balance and Gait Assessment Balance Score 14 Gait Score 7 Composite Score 21 Balance Score Impairment Rating 1 to <20% Impaired (Score 13- 15) Gait Score Impairment Rating 40 to <60% Impaired (Score 5-7 ) Composite Score Impairment Rating 20 to <40% Impaired (Score 17- 22) PT-OP-G Mobility & Gait Start: 03/29/18 07:32 Freq: Status: Active Protocol: Document 05/22/18 11:15 DCW (Rec: 05/22/18 16:00 DCW [id number]) OP Gait Assessment Gait Gait Assistance Required: Independent Able to Maintain Weight Bearing Status Yes During Gait Assistive Devices Assistive Device Gait Belt Gait Deviations General Gait Pattern Decreased Stride Length Decreased Feet Clearance Lateral Trunk Lean Wide Based Gait Factors Limiting Gait Function Factors Limiting Gait Function Abnormal Tonal Influences Decreased Activity Tolerance Decreased Strength Poor Balance PT-OP-H Neuro Start: 03/29/18 07:32 Freq: Status: Active Protocol: Document 03/29/18 09:10 EA (Rec: 03/29/18 09:15 EA [id number]) Muscle Tone Tone Assessment Right Lower Extremity Extensor Tone Description Mild Hypertonicity Manifestations of Tone Fluctuation Muscle Tone Comments Garde 1 spaticity PT-OP-M Strength Start: 03/29/18 07:32 Freq: Status: Active Protocol: Document 05/22/18 11:15 DCW (Rec: 05/22/18 16:00 DCW [id number]) Shoulder Strength Shoulder Manual Muscle Testing Left Flexion 4 Good Extension 4+ Good+ Abduction (C5) 4 Good Adduction 5 Normal External Rotation 4+ Good+ Right Flexion 3+ Fair+ Extension 4- Good- Abduction (C5) 4- Good- Adduction 4- Good- External Rotation 4- Good- Hip Strength Hip Manual Muscle Testing Left Flexion (L2) 3+ Fair+ Abduction 4 Good External Rotation 5 Normal Right Flexion (L2) 3+ Fair+ Abduction 4 Good External Rotation 4- Good- Knee Strength Knee Manual Muscle Testing Left Flexion (S2) 5 Normal Extension (L3) 5 Normal Right Flexion (S2) 4- Good- Extension (L3) 4 Good PT-OP-T Assessment and Plan Start: 03/29/18 07:32 Freq: Status: Active Protocol: Document 10/09/18 12:06 DCW (Rec: 10/09/18 12:06 DCW [id number]) Physical Therapy Assessment Goals Three Impairment MMT to right Hp ABD/Flexors of 3-/5; knee flexors; Right ankle DF 2/5 Pump Mechanic Goal (LTG) Patient will increase MMT to right hip ABD/Flexors, knee flexors and DF by 1/2 grade to improve gait LTG Duration 07/03/18 Two Impairment Decreased walking distance tolerance Mcc Goal (LTG) Patient will ambulate w/ aids x 300 ft w/ no rest on level surfaces indep. LTG Duration 07/03/18 One Mcc Goal (LTG) Patient will exhibit increase strength to RUE/LE by 1/2 grade to improve gait and mobility LTG Duration 07/03/18 Physical Therapy Plan Discharge Physical Therapy Discharge Reasons No Longer Attending PT Discharge Comments Pt did not schedule any further visits after their last attended visit, and has now not been seen in more than three months. Pt will be discharged from skilled therapy at this time, and will require a new referral in order to return.
== END 2019-02-13 07:58 ==
LOC: PHYS 07:30
PROVIDERS: Family Provider Physical Medicine & Rehabilitation; PCP Physical Medicine & Rehabilitation; Visit Provider Physical Medicine & Rehabilitation
DX: G35 Multiple sclerosis (principal); M62.81 Muscle weakness (generalized); R26.81 Unsteadiness on feet
CPT/HCPCS: 97110; 97112; 97116; 97140

== ENCOUNTER → 2018-10-17 08:26 | Outpatient (CLI) | payer OTHER, SELFPAY ==
[2018-10-17 09:39] LABS: Add Manual Diff / Slide Review NO; Basophils Percent Auto 0.6 % (0-2); Eosinophils Percent Auto 2.9 % (2-4); Hematocrit 46.9 % (41-53); Hemoglobin 15.7 g/dL (13.5-17.5); Mean Corpuscular HGB Conc 33.5 % (30-36); Mean Corpuscular Hemoglobin 28.7 PG (26-34); Mean Corpuscular Volume 85.6 fL (80-100); Monocytes Percent Auto 6.5 % (3-14); Neutrophils Absolute Auto 8300 /uL (3000-5900); Platelet Count 308 X10^3/uL (150-400); Red Blood Cell Count 5.48 X10^6/uL (4.5-5.9); Red Cell Distribution Width 14.4 % (11.6-14.8); White Blood Cell Count 10.4 X10^3/uL (4.5-11.0)
[2018-10-17 10:09] LABS: Alanine Aminotransferase 53 IU/L (21-72); Albumin 4.8 g/dL (3.5-5.0); Albumin Globulin Ratio 1.5 (1.0-2.8); Alkaline Phosphatase 67 U/L (38-126); Aspartate Aminotransferase 26 IU/L (17-59); BUN Creatinine Ratio 21.3 (6-22); Bilirubin Total 0.7 mg/dL (0.2-1.3); Blood Urea Nitrogen 17 mg/dL (9-20); Carbon Dioxide 31 mmol/L (22-32); Chloride 98 mmol/L (98-107); Estimated Glomerular Filt Rate > 60.0 mL/min (>60); Globulin 3.3 g/dL (1.7-4.1); Glucose 109 mg/dL (70-100); HEMOLYSIS < 15 (0-50); Potassium 4.1 mmol/L (3.4-5.1); Sodium 145 mmol/L (137-145); Total Protein 8.1 g/dL (6.3-8.2)
[2018-10-21 19:21] LABS: Testosterone Free 26.3 pg/mL (35.0-155.0); Testosterone Total 188 ng/dL (250-1100)
== END ==
PROVIDERS: Family Provider Physical Medicine & Rehabilitation; PCP Physical Medicine & Rehabilitation; Visit Provider Family Medicine
DX: Z51.81 Encounter for therapeutic drug level monitoring (principal); G35 Multiple sclerosis; R79.89 Other specified abnormal findings of blood chemistry
CPT/HCPCS: 36415; 80053; 84402; 84403; 85025

== ENCOUNTER → 2020-10-17 12:07 | Outpatient (CLI) | payer OTHER, SELFPAY ==
[2020-10-17 12:41] LABS: Add Manual Diff / Slide Review NO; Basophils Absolute Auto 100 /uL (0-100); Basophils Percent Auto 0.7 % (0-2); Eosinophils Absolute Auto 300 /uL (0-450); Eosinophils Percent Auto 2.6 % (2-4); Hematocrit 45.8 % (41-53); Hemoglobin 15.6 g/dL (13.5-17.5); Lymphocytes Absolute Auto 1100 /uL (1100-4500); Lymphocytes Percent Auto 10.3 % (25-40); Mean Corpuscular Hemoglobin 29.6 PG (26-34); Mean Corpuscular Volume 86.9 fL (80-100); Monocytes Absolute Auto 800 /uL (0-900); Monocytes Percent Auto 7.4 % (3-14); Neutrophils Absolute Auto 8600 /uL (1500-7000); Platelet Count 285 X10^3/uL (150-400); Red Blood Cell Count 5.27 X10^6/uL (4.5-5.9); Red Cell Distribution Width 13.8 % (11.6-14.8); White Blood Cell Count 10.8 X10^3/uL (4.5-11.0)
[2020-10-17 12:54] LABS: Alanine Aminotransferase 60 IU/L (<50); Albumin 4.8 g/dL (3.5-5.0); Albumin Globulin Ratio 1.5 (1.0-2.8); Alkaline Phosphatase 69 U/L (38-126); Aspartate Aminotransferase 31 IU/L (17-59); BUN Creatinine Ratio 31.3 (6-22); Bilirubin Total 0.6 mg/dL (0.2-1.3); Blood Urea Nitrogen 21 mg/dL (9-20); Calcium 9.6 mg/dL (8.4-10.2); Carbon Dioxide 27 mmol/L (22-32); Chloride 102 mmol/L (98-107); Estimated Glomerular Filt Rate > 60.0 mL/min (>60); Globulin 3.1 g/dL (1.7-4.1); Glucose 116 mg/dL (70-100); HEMOLYSIS 18 (0-50); Potassium 3.9 mmol/L (3.4-5.1); Sodium 139 mmol/L (137-145); Total Protein 7.9 g/dL (6.3-8.2)
== END ==
PROVIDERS: Family Provider Physical Medicine & Rehabilitation; PCP Internal Medicine; Referring Provider Psychiatry & Neurology Neurology; Visit Provider Psychiatry & Neurology Neurology
DX: Z51.81 Encounter for therapeutic drug level monitoring (principal)
CPT/HCPCS: 36415; 80053; 85025

== ENCOUNTER → 2021-06-04 09:53 | Outpatient (CLI) | payer OTHER, SELFPAY ==
[2021-06-04 12:22] LABS: Alanine Aminotransferase 91 IU/L (<50); Albumin 4.7 g/dL (3.5-5.0); Albumin Globulin Ratio 1.5 (1.0-2.8); Alkaline Phosphatase 60 U/L (38-126); Aspartate Aminotransferase 49 IU/L (17-59); BUN Creatinine Ratio 30.3 (6-22); Bilirubin Total 0.7 mg/dL (0.2-1.3); Blood Urea Nitrogen 20 mg/dL (9-20); Calcium 10.1 mg/dL (8.4-10.2); Carbon Dioxide 25 mmol/L (22-32); Chloride 104 mmol/L (98-107); Estimated Glomerular Filt Rate > 60.0 mL/min (>60); Globulin 3.1 g/dL (1.7-4.1); Glucose 108 mg/dL (70-100); HEMOLYSIS < 15 (0-50); Potassium 4.1 mmol/L (3.4-5.1); Sodium 139 mmol/L (137-145); Total Protein 7.8 g/dL (6.3-8.2)
[2021-06-04 14:07] LABS: Add Manual Diff / Slide Review YES; Hemoglobin 15.3 g/dL (13.5-17.5); Mean Corpuscular HGB Conc 34.1 % (30-36); Mean Corpuscular Hemoglobin 30.8 PG (26-34); Mean Corpuscular Volume 90.4 fL (80-100); Platelet Count 254 X10^3/uL (150-400); Red Blood Cell Count 4.98 X10^6/uL (4.5-5.9); Red Cell Distribution Width 13.9 % (11.6-14.8); White Blood Cell Count 9.5 X10^3/uL (4.5-11.0)
[2021-06-04 14:34] LABS: Neutrophils Absolute Manual 7600 /uL (3000-5900); RBC Morphology Normal Morphology; Total Cells Counted 100
== END ==
PROVIDERS: Family Provider Physical Medicine & Rehabilitation; PCP Internal Medicine; Referring Provider Psychiatry & Neurology Neurology; Visit Provider Psychiatry & Neurology Neurology
DX: G35 Multiple sclerosis (principal)
CPT/HCPCS: 36415; 80053; 85007; 85025

== ENCOUNTER 2025-05-31 22:39 | Inpatient (IN) | payer OTHER, MEDICARE, SELFPAY ==
[2025-05-31 22:51] VITALS: BP 139/81; PULSE 117; RESP 18; TEMP 36.5; O2SAT 97; BMI 48.9
--- NOTE | 2025-05-31 22:55 | EKG_ITS ---
[address] [address] Test Date: 2025-05-31 Pat Name: Nadia Mckeon Department: Room: Gender: Male Computer Network Specialist: : [id number] Requested By: Order Number: [id number] Reading MD: Jose Eduardo Martines MD Measurements Intervals [place] Rate: 119 P: 53 NM: 172 QRS: 49 QRSD: 82 T: 44 QT: 318 QTc: 447 Interpretive Statements Sinus tachycardia Electronically Signed On 06-01-2025 8:28:36 PDT by Jose Eduardo Martines MD
[2025-05-31 23:06] LABS: Add Manual Diff / Slide Review NO; Hematocrit 52.1 % (41-53); Hemoglobin 17.3 g/dL (13.5-17.5); Lymphocytes Absolute Auto 700 /uL (1100-4500); Mean Corpuscular HGB Conc 33.2 % (30-36); Mean Corpuscular Hemoglobin 29.5 PG (26-34); Mean Corpuscular Volume 88.9 fL (80-100); Platelet Count 317 X10^3/uL (150-400)
[2025-05-31 23:09] LABS: Alanine Aminotransferase 87 IU/L (<50); Albumin 4.9 g/dL (3.5-5.0); Albumin Globulin Ratio 1.4 (1.0-2.8); Alkaline Phosphatase 60 U/L (38-126); Blood Urea Nitrogen 23 mg/dL (9-20); Calcium 9.8 mg/dL (8.4-10.2); Carbon Dioxide 19 mmol/L (22-32); Chloride 105 mmol/L (98-107); Estimated Glomerular Filt Rate > 60 mL/min (>60); Globulin 3.4 g/dL (1.7-4.1); Glucose 173 mg/dL (70-99); HEMOLYSIS 37 (0-50); Lipase 16 U/L (23-300); Potassium 4.0 mmol/L (3.4-5.1); Sodium 139 mmol/L (137-145); Total Protein 8.3 g/dL (6.3-8.2)
[2025-06-01] VITALS (25 sets, daily range): BP systolic 118–153; BP diastolic 63–99; PULSE 101–119; RESP 11–26; TEMP 36.2–37; O2SAT 94–100; BMI 48.9
[2025-06-01] MEDS: ONDANSETRON 4 MG/2 ML INJ IV ×3 (00:40→21:03)
[2025-06-01 00:42] LABS: Lactate (Lactic Acid) 1.0 mmol/L (0.7-2.1)
--- NOTE | 2025-06-01 00:49 | DI.CT.S_ITS ---
PROCEDURE: CT ABDOMEN PELVIS W CON INDICATIONS: multiple weeks of vomiting and diarrhea TECHNIQUE: After the administration of intravenous contrast, axial sections acquired from the lung bases to the pubic symphysis. Coronal and sagittal reformats were performed. For radiation dose reduction, the following was used: automated exposure control, adjustment of mA and/or kV according to patient size. COMPARISON: None. FINDINGS: Image quality: Diagnostic. Lower Chest: A few pulmonary micro nodules are present within the lung bases, notably the 5 mm nodule in the right lower lobe (series 5, image 12). ABDOMEN: Liver: No solid mass. Gallbladder: Absent. Biliary ducts: No intrahepatic or extrahepatic biliary dilation, accounting for a post cholecystectomy state. Pancreas: No ductal dilation. Moderate atrophy. Spleen: Size is within normal limits. Adrenal Glands: No adrenal nodules. Kidneys and Ureters: No hydronephrosis. No solid mass. No complex renal cystic lesion which requires follow up. Stomach and Bowel: Normal colonic caliber, without significant wall thickening. Central mesenteric fat stranding without adenopathy. Peritoneum: No abnormal intraperitoneal fluid. No free air. Ventral Wall: No significant ventral hernia. Abdominal Nodes: No retroperitoneal or mesenteric adenopathy by size criteria. Vessels: Aorta and inferior vena cava are normal in size. PELVIS: Pelvic Organs: Moderate right and small left testicular hydroceles. Bladder: No bladder wall thickening, accounting for underdistention. Pelvic Nodes: No enlarged lymph nodes. Miscellaneous: Moderate indirect inguinal hernias containing fat. Bones: No aggressive osseous abnormality. 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 Pulmonary micronodules. Consider 12 month follow-up if at high risk for developing lung cancer, per Fleischner Society guidelines. Moderate right and small left testicular hydroceles. Dictated by: Delfino Hartman M.D. on 06/01/2025 at 1:52 Approved by: Delfino Hartman M.D. on 06/01/2025 at 1:56
[2025-06-01 01:00] LABS: Procalcitonin 0.104 ng/mL (<0.5)
[2025-06-01] MEDS: METOCLOPRAMIDE 10 MG/2 ML INJ IV (03:55)
[2025-06-01] MEDS: diphenhydrAMINE 50 MG/ML VIAL 25 MG IV (03:55)
--- NOTE | 2025-06-01 04:24 | ED.NAVMDI ---
HPI - Nausea/Vomiting/Diarrhea General Chief complaint: Nausea/Vomiting/Diarrhea Stated complaint: n/v Time Seen by Provider: 06/01/25 03:03 Source: patient and EMS Mode of arrival: EMS History of Present Illness HPI Narrative: 59-year-old male with history of multiple sclerosis, morbid obesity, anxiety, obstructive sleep apnea, complex abdominal surgical history. Prior ruptured appy 1993, 2008 gallbladder surgery with subsequent bowel obstructions and recurrent admissions leading to partial small-bowel excision over 6 months the same here, which was his last surgical intervention, encouraged to try to avoid abdominal surgeries cause he seems to fibrosis so easily per at bedside. Patient has subsequent fistulous tract, wound VAC in the past, small dressing most recently. Now having 2-1/2 weeks of diarrhea, no recent antibiotic exposure, no fevers or chills, outpatient stool specimen sent for enteric pathogens and ova and parasites reportedly negative from outside clinic facility. Still having loose stooling, now with nausea and vomiting yesterday, nonbloody. Denies chest pain shortness of breath. Denies fevers or chills. Related Data Home Medications ?Medication ?Instructions ?Recorded ?Confirmed cholecalciferol (vitamin D3) 1,250 50,000 unit PO QWEEK ##0 09/04/17 09/20/19 mcg (50,000 unit) capsule dalfampridine 10 mg 10 mg PO BID ##0 09/04/17 09/20/19 tablet,extended release,12 hr (Ampyra) dimethyl fumarate 240 mg 240 mg PO BID ##0 09/04/17 09/20/19 capsule,delayed release (Tecfidera) multivitamin (Multiple Vitamins 1 tab PO QDAY ##0 09/04/17 09/20/19 tablet) Resmed Airsense 10 CPAP #1 ea 03/25/19 09/20/19 Previous Rx's ?Medication ?Instructions ?Recorded escitalopram oxalate 10 mg tablet 10 mg PO QDAY #90 tabs 11/06/18 (Lexapro) hydrochlorothiazide 25 mg tablet 25 mg PO QDAY #90 tabs 11/06/18 Allergies Allergy/AdvReac Type Severity Reaction Status Date / Time glatiramer (copolymer 1) Allergy Severe hives- Verified 06/01/25 07:43 (From COPAXONE) full body doxycycline (DOXYCYCLINE) Allergy Intermediate hives Verified 06/01/25 07:43 Patient History Medical History Chronic fatigue Insomnia Morbid obesity with body mass index (BMI) greater than or equal to 50 Multiple sclerosis (09/04/17) Obstructive sleep apnea of adult Snoring Vitamin D deficiency, unspecified Surgical History Status post appendectomy Status post cholecystectomy Family History Father Arrhythmia Grandfather Heart disease Hypertension Congestive heart failure Grandmother Cancer Mother Age: 82 Cancer Hypertension Stroke Grandfather Stroke Grandmother Heart disease Social History marital status: details: cheyenne Lozano, lives in [place] number of children: 2 household members: spouse lives independently: Yes caregiver/support person: No housing: house education level: college occupational status: disabled Previous occupational history: dentist, 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 Morbid obesity, weight 150 kg, BMI 48.9 kg/m2. HEAD: Atraumatic. Normocephalic. EYES: Pupils equal round and reactive. Extraocular motions intact. No scleral icterus. No injection or drainage. ENT: Nose without bleeding, purulent drainage. Throat without erythema, tonsillar hypertrophy or exudate. Airway patent. NECK: Trachea midline. Non tender CARDIOVASCULAR: Regular rate and rhythm without murmurs, gallops, or rubs. RESPIRATORY: Clear to auscultation. Breath sounds equal bilaterally. No wheezes, rales, or rhonchi. GASTROINTESTINAL: Well-healed scars, right paramedian small tape in place apparently over old fistulous tract, no redness to the dermis. No obvious gross incisional hernia. No distention. No significant tenderness. EXTREMITIES: No edema or joint tenderness. BACK: Nontender without deformity or crepitance. No flank tenderness. NEURO: AOx3. Motor functions grossly nonfocal. SKIN: No rash or erythema of visible areas Initial Vital Signs Initial Vital Signs: Vital Signs Temperature 97.7 F 05/31/25 22:51 Pulse Rate 117 H 05/31/25 22:51 Respiratory Rate 18 05/31/25 22:51 Blood Pressure 139/81 05/31/25 22:51 Pulse Oximetry 97 05/31/25 22:51 Oxygen Delivery Method Room Air 05/31/25 22:51 Course Orders Ordered: ED Orders 06/02/25 06:00 Complete Blood Count AUTO DIFF DAILY Comprehensive Metabolic Panel DAILY Acetaminophen (Acetaminophen 325 Mg Tablet) 650 mg PO Q6H PRN PRN Reason: Fever/Mild Pain (1-3) Ergocalciferol (Ergocalciferol (Vitamin D2) 50,000 Unit Capsule) 50,000 unit PO Rodriguez@0900 [facility] Escitalopram Oxalate (Escitalopram 10 Mg Tablet) 10 mg PO DAILY [facility] Heparin Sodium (Porcine) (Heparin 5,000 Unit/Ml Vial) 5,000 unit SUBCUT BID MADDI Last Admin: 06/01/25 08:25 Dose: 5,000 unit Documented By: JACLYN Hydrochlorothiazide (Hydrochlorothiazide 25 Mg Tablet) 25 mg PO DAILY [facility] Sodium Chloride (Normal Saline 0.9%) 1,000 mls @ 100 mls/hr IV CONT MADDI Last Admin: 06/01/25 10:20 Dose: 100 mls/hr Documented By: Infusion: 06/01/25 10:20 Dose: Infused Documented By: Admin: 06/01/25 08:20 Dose: 100 mls/hr Documented By: JACLYN Methylprednisolone (Methylprednisolone 125 Mg/2 Ml Vial) 40 mg IV Q8H [facility] Morphine Sulfate (Morphine 4 Mg/Ml Inj) 3 mg IV Q2HR PRN PRN Reason: Pain, Severe (7-10) Multivitamins (Multivitamin 1 Tablet) 1 tab PO DAILY [facility] Naloxone HCl (Naloxone 0.4 Mg/Ml Vial) 0.2 mg IV Q2MIN PRN PRN Reason: Opiate Reversal Ondansetron HCl (Ondansetron 4 Mg/2 Ml Inj) 4 mg IV Q8HR PRN PRN Reason: Nausea And Vomiting Discontinued Medications Diphenhydramine HCl (Diphenhydramine 50 Mg/Ml Vial) 25 mg IV NOW ONE Stop: 06/01/25 03:49 Last Admin: 06/01/25 03:55 Dose: 25 mg Documented By: HNG Sodium Chloride (Normal Saline 0.9%) 1,000 mls @ 1,000 mls/hr IV BOLUS ONE Stop: 06/01/25 06:00 Last Infusion: 06/01/25 07:44 Dose: Infused Documented By: Admin: 06/01/25 05:23 Dose: 1,000 mls/hr Documented By: CAROLINE Methylprednisolone (Methylprednisolone 125 Mg/2 Ml Vial) 125 mg IV NOW ONE Stop: 06/01/25 06:10 Last Admin: 06/01/25 08:21 Dose: 125 mg Documented By: JACLYN Metoclopramide HCl (Metoclopramide 10 Mg/2 Ml Inj) 10 mg IV NOW ONE Stop: 06/01/25 03:49 Last Admin: 06/01/25 03:55 Dose: 10 mg Documented By: BRAN Ondansetron HCl (Ondansetron 4 Mg/2 Ml Inj) 4 mg IV NOW PRN PRN Reason: Nausea And Vomiting Last Admin: 06/01/25 00:40 Dose: 4 mg Documented By: KIRT Ondansetron HCl (Ondansetron 4 Mg Odt) 4 mg PO NOW PRN PRN Reason: Nausea And Vomiting Ondansetron HCl (Ondansetron 4 Mg/2 Ml Inj) 4 mg IV NOW ONE Stop: 06/01/25 05:35 Last Admin: 06/01/25 05:41 Dose: 4 mg Documented By: CAROLINE Vital Signs Vital signs: Vital Signs - 8 hr 06/01/25 00:38 06/01/25 00:38 06/01/25 01:00 Pulse Rate 116 H 107 H Respiratory Rate 11 L 20 Blood Pressure 146/92 H Pulse Oximetry 96 94 Oxygen Delivery Method 06/01/25 01:00 06/01/25 01:32 06/01/25 02:00 Pulse Rate 113 H 109 H Respiratory Rate 17 20 Blood Pressure 153/83 H Pulse Oximetry 95 94 Oxygen Delivery Method 06/01/25 02:10 06/01/25 02:10 06/01/25 02:30 Pulse Rate 111 H 108 H Respiratory Rate 22 20 Blood Pressure 143/81 H Pulse Oximetry 95 94 Oxygen Delivery Method 06/01/25 02:30 06/01/25 03:00 06/01/25 03:00 Pulse Rate 112 H Respiratory Rate 20 Blood Pressure 131/74 138/80 Pulse Oximetry 94 Oxygen Delivery Method 06/01/25 03:30 06/01/25 03:30 06/01/25 04:00 Pulse Rate 116 H 109 H Respiratory Rate 22 20 Blood Pressure 143/84 H Pulse Oximetry 95 96 Oxygen Delivery Method Room Air 06/01/25 04:00 06/01/25 04:30 06/01/25 04:30 Pulse Rate 108 H Respiratory Rate 20 Blood Pressure 123/85 136/77 Pulse Oximetry 94 Oxygen Delivery Method 06/01/25 05:00 06/01/25 05:00 06/01/25 05:30 Pulse Rate 107 H 119 H Respiratory Rate 20 26 H Blood Pressure 137/78 Pulse Oximetry 94 96 Oxygen Delivery Method 06/01/25 05:30 06/01/25 06:00 06/01/25 06:00 Pulse Rate 106 H Respiratory Rate 22 Blood Pressure 118/88 145/75 H Pulse Oximetry 94 Oxygen Delivery Method 06/01/25 06:30 06/01/25 06:30 Pulse Rate 108 H Respiratory Rate 24 Blood Pressure 152/75 H Pulse Oximetry 94 Oxygen Delivery Method MDM - Nausea/Vomiting/Diarrhea Lab Data Attestation: I reviewed the patient's lab results. Lab results narrative: White blood cell count 63425, hemoglobin 17.3, platelets adequate. Glucose 173. BUN 23 with creatinine 0.79. Serum CO2 19 diminished. Electrolytes unremarkable. ALT 87, other liver functions unremarkable. Lipase 16. Procalcitonin 0.104. 05/31/25 22:43 05/31/25 22:43 Labs: Lab Results 05/31/25 06/01/25 06/01/25 Range/Units 22:43 00:13 06:04 WBC 20.4 H (4.5-11.0) X10^3/uL RBC 5.86 (4.5-5.9) X10^6/uL Hgb 17.3 (13.5-17.5) g/dL Hct 52.1 (41-53) % MCV 88.9 (80-100) fL MCH 29.5 (26-34) PG MCHC 33.2 (30-36) % RDW 14.4 (11.6-14.8) % Plt Count 317 (150-400) X10^3/uL Neut % (Auto) 91.0 H (50-75) % Lymph % (Auto) 3.6 L (25-40) % [place] % (Auto) 4.9 (3-14) % Eos % (Auto) 0.4 L (2-4) % Baso % (Auto) 0.1 (0-2) % Neut # (Auto) 79879 H (8277-6120) /uL Lymph # (Auto) 700 L (3183-4970) /uL [place] # (Auto) 1000 H (0-900) /uL Eos # (Auto) 100 (0-450) /uL Baso # (Auto) 0 (0-100) /uL Sodium 139 (137-145) mmol/L Potassium 4.0 (3.4-5.1) mmol/L Chloride 105 (98-107) mmol/L Carbon Dioxide 19 L (22-32) mmol/L BUN 23 H (9-20) mg/dL Creatinine 0.79 (0.66-1.25) mg/dL Estimated GFR > 60 (>60) mL/min BUN/Creatinine Ratio 29.1 H (6-22) Glucose 173 H (70-99) mg/dL Lactate 1.0 (0.7-2.1) mmol/L Calcium 9.8 (8.4-10.2) mg/dL Total Bilirubin 1.0 (0.2-1.3) mg/dL AST 42 (17-59) IU/L ALT 87 H (<50) IU/L Alkaline Phosphatase 60 (38-126) U/L Total Protein 8.3 H (6.3-8.2) g/dL Albumin 4.9 (3.5-5.0) g/dL Globulin 3.4 (1.7-4.1) g/dL Albumin/Globulin Ratio 1.4 (1.0-2.8) Lipase 16 L (23-300) U/L Procalcitonin 0.104 (<0.5) ng/mL Stl C. cayetanensis PCR Not detected (Not Detect) Stool Rotavirus (PCR) Not detected (Not Detect) Stool Adenovirus (PCR) Not detected (Not Detect) Stool Astrovirus (PCR) Not detected (Not Detect) Stool Cryptosporidium PCR Not detected (Not Detect) Stl E.coli Shiga Tox PCR Not detected (Not Detect) St Sh/Enteroin Ecoli PCR Not detected (Not Detect) Stl Enterotoxigenic E PCR Not detected (Not Detect) Stool EPEC (PCR) Not detected (Not Detect) Stl E. histolytica PCR Not detected (Not Detect) Stool Giardia Lamblia PCR Not detected (Not Detect) Stool Sapovirus (PCR) Not detected (Not Detect) Stl P. shigelloides PCR Not detected (Not Detect) St Y.enterocolitica PCR Not detected (Not Detect) Stool Vibrio (PCR) Not detected (Not Detect) Stl Vibrio cholerae PCR Not detected (Not Detect) Stl Enteroaggr Ecoli PCR Not detected (Not Detect) Stl Norovirus GI/GII PCR Not detected (Not Detect) Campylobacter (PCR) Not detected (Not Detect) C. difficile Tox (PCR) Not detected (Not Detect) Salmonella (PCR) Not detected (Not Detect) Imaging Data CT scan - abdomen/pelvis: Radiologist's Impression: [address] [address] [address] Scan Report Signed Patient: Nadia Mckeon MR#: [id number] : 1965 Acct:[id number] Age/Sex: 59 / M Date of Service: 06/01/25 Loc: ED Accession Number: [id number] Procedure: CT abdomen pelvis w con Ordering Provider: Kamar Singer MD PROCEDURE: CT ABDOMEN PELVIS W CON INDICATIONS: multiple weeks of vomiting and diarrhea TECHNIQUE: After the administration of intravenous contrast, axial sections acquired from the lung bases to the pubic symphysis. Coronal and sagittal reformats were performed. For radiation dose reduction, the following was used: automated exposure control, adjustment of mA and/or kV according to patient size. COMPARISON: None. FINDINGS: Image quality: Diagnostic. Lower Chest: A few pulmonary micro nodules are present within the lung bases, notably the 5 mm nodule in the right lower lobe (series 5, image 12). ABDOMEN: Liver: No solid mass. Gallbladder: Absent. Biliary ducts: No intrahepatic or extrahepatic biliary dilation, accounting for a post cholecystectomy state. Pancreas: No ductal dilation. Moderate atrophy. Spleen: Size is within normal limits. Adrenal Glands: No adrenal nodules. Kidneys and Ureters: No hydronephrosis. No solid mass. No complex renal cystic lesion which requires follow up. Stomach and Bowel: Normal colonic caliber, without significant wall thickening. Central mesenteric fat stranding without adenopathy. Peritoneum: No abnormal intraperitoneal fluid. No free air. Ventral Wall: No significant ventral hernia. Abdominal Nodes: No retroperitoneal or mesenteric adenopathy by size criteria. Vessels: Aorta and inferior vena cava are normal in size. PELVIS: Pelvic Organs: Moderate right and small left testicular hydroceles. Bladder: No bladder wall thickening, accounting for underdistention. Pelvic Nodes: No enlarged lymph nodes. Miscellaneous: Moderate indirect inguinal hernias containing fat. Bones: No aggressive osseous abnormality. 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 Pulmonary micronodules. Consider 12 month follow-up if at high risk for developing lung cancer, per Fleischner Society guidelines. Moderate right and small left testicular hydroceles. Dictated by: Delfino Hartman M.D. on 06/01/2025 at 1:52 Approved by: Delfino Hartman M.D. on 06/01/2025 at 1:56 ECG Data Attestation: I personally reviewed and interpreted this ECG as follows: Interpretation: 2259, sinus tachycardia with rate of 119. No obvious ST segment elevation or depression changes. CO 172, QRS 82, QTC 447. [facility] Narrative Medical decision making narrative: 59-year-old male with complex gastrointestinal surgical history, prior remote appendectomy with rupture, in 2008 had gallbladder surgery in [facility] with subsequent repeated surgeries over 6 months leading to partial small-bowel obstruction, which was his last abdominal surgical intervention. Has recent 2-1/2 weeks diarrhea loose stools without black/red color, non mucoid, outpatient clinic stool specimens and ova and parasite studies negative. No fevers or chills. Now having nausea and vomiting nonbloody for the last couple of days. Labs pending. Stool studies requested if he produces a specimen. IV antiemetic, IV fluid bolus. Lab data: White blood cell count 77132, hemoglobin 17.3, platelets adequate. Glucose 173. BUN 23 with creatinine 0.79. Serum CO2 19 diminished. Electrolytes unremarkable. ALT 87, other liver functions unremarkable. Lipase 16. Procalcitonin 0.104. CT abdomen and pelvis. 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 Pulmonary micronodules. Consider 12 month follow-up if at high risk for developing lung cancer, per Fleischner Society guidelines.Moderate right and small left testicular hydroceles. See radiology report. Case discussed with on-call surgery Dr. Hightower, reading description of ?suspected mesenteric panniculitis? of unclear significance. Per AI Google search search on his phone this apparently is also known as ?sclerosing mesenteritis which apparently is a benign fibrosing condition of the mesentery. No actual obstruction described on reading today. White blood cell count 27874 noted, stool specimen requested, none received by laboratory, to screen for C diff or other enteric pathogens. Hold antibiotics for now unless C diff for other bacterial infection confirmed. Treat symptomatically. Patient feels less nauseated after Zofran and Reglan. Still feels like he would like a 2 L of fluid after 1st infused, repeat IV fluid bolus 1000 cc ordered. 05, case discussed with LUCY Curry, who had not heard of either sclerosing mesenteritis or mesenteric panniculitis syndromes, he will try to do some research and call back. 06, case discussed again with LUCY Dhaliwal, who was able to relay treatment regimen for this syndrome, treated as a chronic autoimmune disorder, can use IV Solu-Medrol 125 mg bolus, then 40 mg IV Q 8 hours until symptoms are improved. At discharge recommends 1 month steroid tapering regimen: Prednisone 40 mg daily for 7 days, 30 mg daily for 7 days, 20 mg daily for 7 days, 10 mg daily for 7 days. Patient can follow up with him after discharge. 06, adamant she can not take care of patient with morbid obesity and frequent stooling, patient and asking about admission here. IV/oral steroid regimen above relayed recommended from Fredo AYALA, patient willing to try this. IV Solu-Medrol 125 mg 1st dose ordered. We will contact hospitalist. 06, case discussed with hospitalist Dr. Peterson who accepts patient for admission Critical Care Time Critical Care Time Critical Care Time: Yes Total Critical Care Time: 35 Attestation: The high probability of a clinically significant, sudden or life threatening deterioration of the [abdominopelvic, gastrointestinal] system(s) required my full and direct attention, intervention and personal management. The aggregate critical care time was [35] minutes. This time is in addition to time spent performing reported procedures but includes the following: [x] Data Review and interpretation [x] Patient assessment and monitoring of vital signs [x] Documentation [x] Medication orders and management Discharge Plan Departure Patient Disposition: Admitted As Inpatient Clinical Impression: Diarrhea, Nausea vomiting and diarrhea, Sclerosing mesenteritis Admit Date/Time: 06/01/25 06:33 Admit Provider: Andre Peterson
[2025-06-01] MEDS: SODIUM CHLORIDE 0.9% 1,000 ML 1000 ML IV (05:23)
--- NOTE | 2025-06-01 06:37 | PM.HP.1 ---
History of Present Illness History of Present Illness Date Patient Seen: 06/01/25 Time Patient Seen: 06:37 Chief complaint: n/v Narrative: 59-year-old male with past medical history of multiple sclerosis, morbid obesity, anxiety, obstructive sleep apnea, complex abdominal surgical history and subsequent small bowel obstructions and partial small bowel excision over the 6-month presents with complaint of severe nausea vomiting and nonbloody diarrhea. Of note the patient also has a fistulous track and wound VAC in the past with small dressing most recently. Over the last 2 and half weeks, the patient has been having these GI symptoms with severe nausea, vomiting and diarrhea. Denies any recent antibiotic use. Denies any fever, chills, GI bleed, chest pain or dysuria. Denies any coughing. Does have some abdominal discomfort associated with the GI symptoms. In the emergency room, the patient was hemodynamically stable. However WBC was 20,000. ALT 87. Lipase 16. Procalcitonin 0.104. CT abdomen and pelvic shows signs suspecting mesenteric panniculitis. Stool studies were sent. Our ER physician did reach out to on-call GI physician who recommended that we start the patient on IV steroids. The patient remains hemodynamically stable. [facility] Medical History Chronic fatigue Insomnia Morbid obesity with body mass index (BMI) greater than or equal to 50 Multiple sclerosis (09/04/17) Obstructive sleep apnea of adult Snoring Vitamin D deficiency, unspecified Surgical History Status post appendectomy Status post cholecystectomy Family History Father Arrhythmia Grandfather Heart disease Hypertension Congestive heart failure Grandmother Cancer Mother Age: 82 Cancer Hypertension Stroke Grandfather Stroke Grandmother Heart disease Social History marital status: details: cheyenne Lozano, lives in [place] number of children: 2 household members: spouse lives independently: Yes caregiver/support person: No housing: house education level: college occupational status: disabled Previous occupational history: dentist, 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 Smoking Status: Former smoker Meds Home Medications and Allergies Home Medications ?Medication ?Instructions ?Recorded ?Confirmed ?Type cholecalciferol (vitamin D3) 1,250 50,000 unit PO QWEEK ##0 09/04/17 09/20/19 History mcg (50,000 unit) capsule dalfampridine 10 mg 10 mg PO BID ##0 09/04/17 09/20/19 History tablet,extended release,12 hr (Ampyra) dimethyl fumarate 240 mg 240 mg PO BID ##0 09/04/17 09/20/19 History capsule,delayed release (Tecfidera) multivitamin (Multiple Vitamins 1 tab PO QDAY ##0 09/04/17 09/20/19 History tablet) escitalopram oxalate 10 mg tablet 10 mg PO QDAY #90 tabs 11/06/18 09/20/19 Rx (Lexapro) hydrochlorothiazide 25 mg tablet 25 mg PO QDAY #90 tabs 11/06/18 09/20/19 Rx Resmed Airsense 10 CPAP #1 ea 03/25/19 09/20/19 History Allergies Allergy/AdvReac Type Severity Reaction Status Date / Time glatiramer (copolymer 1) Allergy Severe hives- Unverified 01/15/19 09:42 (From COPAXONE) full body doxycycline (DOXYCYCLINE) Allergy Intermediate hives Unverified 01/15/19 09:42 Review of Systems Review of Systems ROS: Yes All systems reviewed with the patient and are negative except as otherwise documented Exam Vital Signs (past 8 hours): - 05/31/25 22:51 06/01/25 00:38 06/01/25 00:38 Temperature 97.7 F Pulse Rate 117 H 116 H Respiratory Rate 18 11 L Blood Pressure 139/81 146/92 H Pulse Oximetry 97 96 Oxygen Delivery Method Room Air 06/01/25 01:00 06/01/25 01:00 06/01/25 01:32 Temperature Pulse Rate 107 H 113 H Respiratory Rate 20 17 Blood Pressure 153/83 H Pulse Oximetry 94 95 Oxygen Delivery Method 06/01/25 02:00 06/01/25 02:10 06/01/25 02:10 Temperature Pulse Rate 109 H 111 H Respiratory Rate 20 22 Blood Pressure 143/81 H Pulse Oximetry 94 95 Oxygen Delivery Method 06/01/25 02:30 06/01/25 02:30 06/01/25 03:00 Temperature Pulse Rate 108 H 112 H Respiratory Rate 20 20 Blood Pressure 131/74 Pulse Oximetry 94 94 Oxygen Delivery Method 06/01/25 03:00 06/01/25 03:30 06/01/25 03:30 Temperature Pulse Rate 116 H Respiratory Rate 22 Blood Pressure 138/80 143/84 H Pulse Oximetry 95 Oxygen Delivery Method Room Air 06/01/25 04:00 06/01/25 04:00 06/01/25 04:30 Temperature Pulse Rate 109 H Respiratory Rate 20 Blood Pressure 123/85 136/77 Pulse Oximetry 96 Oxygen Delivery Method 06/01/25 04:30 06/01/25 05:00 06/01/25 05:00 Temperature Pulse Rate 108 H 107 H Respiratory Rate 20 20 Blood Pressure 137/78 Pulse Oximetry 94 94 Oxygen Delivery Method 06/01/25 05:30 06/01/25 05:30 06/01/25 06:00 Temperature Pulse Rate 119 H Respiratory Rate 26 H Blood Pressure 118/88 145/75 H Pulse Oximetry 96 Oxygen Delivery Method 06/01/25 06:00 06/01/25 06:30 06/01/25 06:30 Temperature Pulse Rate 106 H 108 H Respiratory Rate 22 24 Blood Pressure 152/75 H Pulse Oximetry 94 94 Oxygen Delivery Method Oxygen Delivery Method Room Air Narrative Exam Narrative: Physical Exam: GENERAL: The patient is not in any acute distressed. Awake and alert. HEENT: Nonicteric sclerae, PERRLA, EOMI. Oropharynx clear. Moist mucous membranes. Conjunctivae appear well perfused. HEART: Regular rate and rhythm without murmurs. No lower extremities edema. LUNGS: Clear to auscultation bilaterally. No wheezing, crackles or rhonchi ABDOMEN: Soft, positive bowel sounds, nontender. SKIN: No rash, no excessive bruising, petechiae, or purpura. NEUROLOGIC: AxO x 3. Cranial nerves II-XII intact without motor/sensory deficit. Objective Labs 05/31/25 22:43 05/31/25 22:43 Labs: Laboratory Results - last 24 hr 05/31/25 06/01/25 22:43 00:13 WBC 20.4 H RBC 5.86 Hgb 17.3 Hct 52.1 MCV 88.9 MCH 29.5 MCHC 33.2 RDW 14.4 Plt Count 317 Neut % (Auto) 91.0 H Lymph % (Auto) 3.6 L [place] % (Auto) 4.9 Eos % (Auto) 0.4 L Baso % (Auto) 0.1 Neut # (Auto) 39518 H Lymph # (Auto) 700 L [place] # (Auto) 1000 H Eos # (Auto) 100 Baso # (Auto) 0 Sodium 139 Potassium 4.0 Chloride 105 Carbon Dioxide 19 L BUN 23 H Creatinine 0.79 Estimated GFR > 60 BUN/Creatinine Ratio 29.1 H Glucose 173 H Lactate 1.0 Calcium 9.8 Total Bilirubin 1.0 AST 42 ALT 87 H Alkaline Phosphatase 60 Total Protein 8.3 H Albumin 4.9 Globulin 3.4 Albumin/Globulin Ratio 1.4 Lipase 16 L Procalcitonin 0.104 Assessment & Plan Assessment & Plan narrative: Mesenteric panniculitis. Admit the patient to medical inpatient. Per the recommendation of GI physician on-call, we will continue IV Solu-Medrol 40 mg every 8 hours until symptoms improved. At discharge 1 month steroids tapering regimen recommended. Prednisone 40 mg p.o. daily for 7 days then 30 mg daily for 7 days then 20 mg daily for 7 days then 10 mg for 7 days and the patient can follow-up with GI postdischarge. Of note stool studies were sent. Patient remained hemodynamically stable. Leukocytosis. Other than that patient is not septic at this time. Likely due to above. IV fluid monitor for now. Sleep apnea. Resume BiPAP at night. Depression resume home antidepressant once medication reconciled. Hypertension. Monitor blood pressure and resume home medication accordingly. DVT prophylaxis heparin subcu. CODE STATUS full code. Of note patient states that he has paperwork that state DNR DNI in the past but for now he wants to revert to full code Disposition likely home in 2 to 3 days. - As the provider of this telehealth evaluation, requested by the patient's evaluating physician, I attest that I introduced myself to the patient, provided my credentials and determined that telemedicine via a real-time, 2 way interactive audio and video platform is an appropriate and effective means of providing this service. - I reviewed the patient's chart and had a discussion with the member of the patient's treatment team. - The patient and I mutually agreed with continuation of this evaluation via telemedicine. The patient consented for the telemedicine evaluation. - This virtual encounter was taken place from [place] by Dr. Andre Peetrson. The patient was evaluated at [facility]. The encounter was approximately 35 minutes. The nurse was present during the entire time of the encounter and was able to move the stethoscope in appropriate directions. Time-Based Coding :: [TOTAL MINUTES] spent with patient and on the chart (including review of chart, obtaining history, exam, reviewing outside data, placing orders, documenting exam and treatment plan, and counseling patient) on [DATE].
--- NOTE | 2025-06-01 07:36 | PC.NURSE ---
Alirio provided to pt with assistance from GRINDER MACHINE SETTER for 2 person roll. Pt given call light and updated to wait for bed on floor. Pt A&Ox4, NAD, RA, breathing even/equal/unlabored at this time. Pt placed in position of comfort
[2025-06-01 07:51] LABS: Clostridium difficile toxin AB Not Detected (Not Detect); Enteroaggregative E.coli Not Detected (Not Detect); Enteropathogenic E.coli Not Detected (Not Detect); Enterotoxigenic E.coli It/st Not Detected (Not Detect); Plesiomonsa shigelloides Not Detected (Not Detect); Shiga-like toxin-prod E.coli Not Detected (Not Detect)
--- NOTE | 2025-06-01 08:03 | PM.PN.1 ---
Subjective Subjective Date Patient Seen: 06/01/25 Interval history: He tells me that he lives with his and son in [place]. 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 His primary care is Angela Heard. He says that his abdominal pain and loose stools actually started 17 days ago. He has had multiple sclerosis since 2013. At baseline he uses a walker with skids. The white blood count is 20.4. The CT scan showed mesenteric panniculitis. He is on steroids for that. The CMP was normal. The glucose was 173 with an ALT of 87. The blood pressure has been as high as 191/88. Exam Vital Signs (past 8 hours): - 06/01/25 00:38 06/01/25 00:38 06/01/25 01:00 Temperature Pulse Rate 116 H 107 H Respiratory Rate 11 L 20 Blood Pressure 146/92 H Pulse Oximetry 96 94 Oxygen Delivery Method 06/01/25 01:00 06/01/25 01:32 06/01/25 02:00 Temperature Pulse Rate 113 H 109 H Respiratory Rate 17 20 Blood Pressure 153/83 H Pulse Oximetry 95 94 Oxygen Delivery Method 06/01/25 02:10 06/01/25 02:10 06/01/25 02:30 Temperature Pulse Rate 111 H 108 H Respiratory Rate 22 20 Blood Pressure 143/81 H Pulse Oximetry 95 94 Oxygen Delivery Method 06/01/25 02:30 06/01/25 03:00 06/01/25 03:00 Temperature Pulse Rate 112 H Respiratory Rate 20 Blood Pressure 131/74 138/80 Pulse Oximetry 94 Oxygen Delivery Method 06/01/25 03:30 06/01/25 03:30 06/01/25 04:00 Temperature Pulse Rate 116 H 109 H Respiratory Rate 22 20 Blood Pressure 143/84 H Pulse Oximetry 95 96 Oxygen Delivery Method Room Air 06/01/25 04:00 06/01/25 04:30 06/01/25 04:30 Temperature Pulse Rate 108 H Respiratory Rate 20 Blood Pressure 123/85 136/77 Pulse Oximetry 94 Oxygen Delivery Method 06/01/25 05:00 06/01/25 05:00 06/01/25 05:30 Temperature Pulse Rate 107 H 119 H Respiratory Rate 20 26 H Blood Pressure 137/78 Pulse Oximetry 94 96 Oxygen Delivery Method 06/01/25 05:30 06/01/25 06:00 06/01/25 06:00 Temperature Pulse Rate 106 H Respiratory Rate 22 Blood Pressure 118/88 145/75 H Pulse Oximetry 94 Oxygen Delivery Method 06/01/25 06:30 06/01/25 06:30 06/01/25 07:00 Temperature Pulse Rate 108 H 107 H Respiratory Rate 24 21 Blood Pressure 152/75 H Pulse Oximetry 94 95 Oxygen Delivery Method 06/01/25 07:00 06/01/25 07:30 06/01/25 07:38 Temperature 98.6 F 98.6 F Pulse Rate 111 H 102 H Respiratory Rate 22 19 Blood Pressure 133/99 H Pulse Oximetry 95 100 Oxygen Delivery Method Room Air Oxygen Delivery Method Room Air Narrative Exam Narrative: Alert and oriented x3. Very well-organized and well-spoken. No apparent distress. Abdomen is soft, bowel sounds positive, nontender, no organomegaly. Heart is regular rate and rhythm without murmur Lungs are clear to auscultation bilaterally Extremities have no ankle edema Neurological exam right integrated circuits inspector is 2/5, left integrated circuits inspector is 3/5. Right lower extremity motor function 1/5. Left lower extremity motor function 4/5. Objective Labs 05/31/25 22:43 05/31/25 22:43 Labs: Laboratory Results - last 24 hr 05/31/25 06/01/25 06/01/25 22:43 00:13 06:04 WBC 20.4 H RBC 5.86 Hgb 17.3 Hct 52.1 MCV 88.9 MCH 29.5 MCHC 33.2 RDW 14.4 Plt Count 317 Neut % (Auto) 91.0 H Lymph % (Auto) 3.6 L [place] % (Auto) 4.9 Eos % (Auto) 0.4 L Baso % (Auto) 0.1 Neut # (Auto) 32480 H Lymph # (Auto) 700 L [place] # (Auto) 1000 H Eos # (Auto) 100 Baso # (Auto) 0 Sodium 139 Potassium 4.0 Chloride 105 Carbon Dioxide 19 L BUN 23 H Creatinine 0.79 Estimated GFR > 60 BUN/Creatinine Ratio 29.1 H Glucose 173 H Lactate 1.0 Calcium 9.8 Total Bilirubin 1.0 AST 42 ALT 87 H Alkaline Phosphatase 60 Total Protein 8.3 H Albumin 4.9 Globulin 3.4 Albumin/Globulin Ratio 1.4 Lipase 16 L Procalcitonin 0.104 Stl C. cayetanensis PCR Not detected Stool Rotavirus (PCR) Not detected Stool Adenovirus (PCR) Not detected Stool Astrovirus (PCR) Not detected Stool Cryptosporidium PCR Not detected Stl E.coli Shiga Tox PCR Not detected St Sh/Enteroin Ecoli PCR Not detected Stl Enterotoxigenic E PCR Not detected Stool EPEC (PCR) Not detected Stl E. histolytica PCR Not detected Stool Giardia Lamblia PCR Not detected Stool Sapovirus (PCR) Not detected Stl P. shigelloides PCR Not detected St Y.enterocolitica PCR Not detected Stool Vibrio (PCR) Not detected Stl Vibrio cholerae PCR Not detected Stl Enteroaggr Ecoli PCR Not detected Stl Norovirus GI/GII PCR Not detected Campylobacter (PCR) Not detected C. difficile Tox (PCR) Not detected Salmonella (PCR) Not detected PFSH Medical History Chronic fatigue Insomnia Morbid obesity with body mass index (BMI) greater than or equal to 50 Multiple sclerosis (09/04/17) Obstructive sleep apnea of adult Snoring Vitamin D deficiency, unspecified Surgical History Status post appendectomy Status post cholecystectomy Family History Father Arrhythmia Grandfather Heart disease Hypertension Congestive heart failure Grandmother Cancer Mother Age: 82 Cancer Hypertension Stroke Grandfather Stroke Grandmother Heart disease Social History marital status: details: cheyenne Lozano, lives in [place] number of children: 2 household members: spouse lives independently: Yes caregiver/support person: No housing: house education level: college occupational status: disabled Previous occupational history: dentist, 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 Admit the patient to medical inpatient. Per the recommendation of GI physician on-call, we will continue IV Solu-Medrol 40 mg every 8 hours until symptoms improved. At discharge 1 month steroids tapering regimen recommended. Prednisone 40 mg p.o. daily for 7 days then 30 mg daily for 7 days then 20 mg daily for 7 days then 10 mg for 7 days and the patient can follow-up with GI postdischarge. Of note stool studies were sent. Patient remains hemodynamically stable. Leukocytosis. Other than that patient is not septic at this time. Likely due to above. IV fluid and monitor for now. Multiple sclerosis, present on admission. Chronic. -clarify availability of and appropriateness for continuation of Tecfidera and Ampyra. Sleep apnea. Resume BiPAP at night. Depression resume home escitalopram. Hypertension. Monitor blood pressure and resume home medication accordingly. DVT prophylaxis heparin subcu. CODE STATUS full code. Of note patient states that he has paperwork that state DNR DNI in the past but for now he wants to revert to full code Disposition likely home in 2 to 3 days. Time-Based Coding :: [TOTAL MINUTES] spent with patient and on the chart (including review of chart, obtaining history, exam, reviewing outside data, placing orders, documenting exam and treatment plan, and counseling patient) on [DATE].
[2025-06-01] MEDS: SODIUM CHLORIDE 0.9% 1,000 ML 100 ML IV ×2 (08:20→10:20)
[2025-06-01] MEDS: HEPARIN 5,000 UNIT/ML VIAL 5000 UNIT SUBCUT ×2 (08:25→21:03)
--- NOTE | 2025-06-01 09:45 | PC.NURSE ---
This ASSEMBLY MACHINE FEEDER with assistance from another ASSEMBLY MACHINE FEEDER performed bernardino care for pt changed chux pads and brief. pt was repositioned into comfortable position.
[2025-06-02 01:00] VITALS: BP 138/83; PULSE 104; RESP 17; TEMP 36.4; O2SAT 96
[2025-06-02] MEDS: SODIUM CHLORIDE 0.9% 1,000 ML 100 ML IV ×3 (03:18→23:07)
[2025-06-02 06:25] LABS: Add Manual Diff / Slide Review NO; Hematocrit 42.8 % (41-53); Hemoglobin 14.5 g/dL (13.5-17.5); Lymphocytes Absolute Auto 500 /uL (1100-4500); Mean Corpuscular HGB Conc 33.9 % (30-36); Mean Corpuscular Hemoglobin 29.9 PG (26-34); Mean Corpuscular Volume 88.3 fL (80-100); Platelet Count 234 X10^3/uL (150-400)
[2025-06-02 06:34] LABS: Alanine Aminotransferase 63 IU/L (<50); Albumin 3.9 g/dL (3.5-5.0); Albumin Globulin Ratio 1.5 (1.0-2.8); Alkaline Phosphatase 51 U/L (38-126); Blood Urea Nitrogen 18 mg/dL (9-20); Calcium 8.5 mg/dL (8.4-10.2); Carbon Dioxide 22 mmol/L (22-32); Chloride 108 mmol/L (98-107); Estimated Glomerular Filt Rate > 60 mL/min (>60); Globulin 2.6 g/dL (1.7-4.1); Glucose 163 mg/dL (70-99); HEMOLYSIS < 15 (0-50); Potassium 3.9 mmol/L (3.4-5.1); Sodium 139 mmol/L (137-145); Total Protein 6.5 g/dL (6.3-8.2)
[2025-06-02 08:00] VITALS: BP 145/84; PULSE 90; RESP 17; TEMP 36; O2SAT 96
--- NOTE | 2025-06-02 08:03 | PM.PN.1 ---
Subjective Subjective Date Patient Seen: 06/02/25 Interval history: The white blood count has dropped from 20.4 down to 10.3. The diarrhea has improved. The GI PCR was negative. The CMP is normal with a glucose of 150 and an ALT of 63. He will be tried on oral intake today. He explains that the blancheable reddish bands on the top of both feet is from his sandals and peripheral vascular disease. He informs us that he is no longer taking Lexapro and instead is on 60 mg of Prozac daily. Exam Vital Signs (past 8 hours): - 06/02/25 01:00 Temperature 97.6 F Pulse Rate 104 H Respiratory Rate 17 Blood Pressure 138/83 Pulse Oximetry 96 Oxygen Flow Rate 0 Oxygen Delivery Method Room Air Oxygen Flow Rate 0 Narrative Exam Narrative: Alert and oriented x3. No apparent distress. Heart is regular rate and rhythm without murmur Lungs are clear to auscultation bilaterally Abdomen is obese, soft, bowel sounds positive, nontender, no organomegaly. Extremities have no ankle edema Reddish bands matching sandal top pressure across the mid section of both feet that maritza under direct pressure. Objective Labs 06/02/25 05:20 06/02/25 05:20 Labs: Laboratory Results - last 24 hr 06/01/25 06/02/25 22:30 05:20 WBC 10.3 RBC 4.85 Hgb 14.5 Hct 42.8 MCV 88.3 MCH 29.9 MCHC 33.9 RDW 14.2 Plt Count 234 Neut % (Auto) 93.1 H Lymph % (Auto) 4.9 L [place] % (Auto) 1.9 L Eos % (Auto) 0.0 L Baso % (Auto) 0.1 Neut # (Auto) 9600 H Lymph # (Auto) 500 L [place] # (Auto) 200 Eos # (Auto) 0 Baso # (Auto) 0 Sodium 139 Potassium 3.9 Chloride 108 H Carbon Dioxide 22 BUN 18 Creatinine 0.54 L Estimated GFR > 60 BUN/Creatinine Ratio 33.3 H Glucose 163 H POC Whole Bld Glucose 150 H Calcium 8.5 Total Bilirubin 0.7 AST 26 ALT 63 H Alkaline Phosphatase 51 Total Protein 6.5 Albumin 3.9 Globulin 2.6 Albumin/Globulin Ratio 1.5 [facility] Medical History Chronic fatigue Insomnia Morbid obesity with body mass index (BMI) greater than or equal to 50 Multiple sclerosis (09/04/17) Obstructive sleep apnea of adult Snoring Vitamin D deficiency, unspecified Surgical History Status post appendectomy Status post cholecystectomy Family History Father Arrhythmia Grandfather Heart disease Hypertension Congestive heart failure Grandmother Cancer Mother Age: 82 Cancer Hypertension Stroke Grandfather Stroke Grandmother Heart disease Social History marital status: details: cheyenne Lozano, lives in [place] number of children: 2 household members: spouse and children lives independently: Yes caregiver/support person: No housing: house education level: college occupational status: disabled Previous occupational history: dentist, 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 Admit the patient to medical inpatient. Per the recommendation of GI physician on-call, we will continue IV Solu-Medrol 40 mg every 8 hours until symptoms improved. At discharge 1 month steroids tapering regimen recommended. Prednisone 40 mg p.o. daily for 7 days then 30 mg daily for 7 days then 20 mg daily for 7 days then 10 mg for 7 days and the patient can follow-up with GI postdischarge. Of note stool studies were negative. Patient remains hemodynamically stable. Begin oral intake today and if does well then change to oral steroids. Multiple sclerosis, present on admission. Chronic. -clarify availability of and appropriateness for continuation of Tecfidera and Ampyra. Sleep apnea. BiPAP at night. Depression-change to current treatment of fluoxetine (no longer on escitalopram). Hypertension. Monitor blood pressure and resume home medication accordingly. DVT prophylaxis heparin subcu. CODE STATUS full code. Disposition likely home in 1-2 days. Time-Based Coding :: [TOTAL MINUTES] spent with patient and on the chart (including review of chart, obtaining history, exam, reviewing outside data, placing orders, documenting exam and treatment plan, and counseling patient) on [DATE].
[2025-06-02] MEDS: ESCITALOPRAM 10 MG TABLET PO (09:42)
[2025-06-02] MEDS: MULTIVITAMIN 1 TABLET 1 TAB PO (09:42)
[2025-06-02] MEDS: HEPARIN 5,000 UNIT/ML VIAL 5000 UNIT SUBCUT ×2 (09:43→20:48)
--- NOTE | 2025-06-02 11:37 | CM.DANOTE ---
Patient is a 59 yo male who was admitted INPT Status on 06/01/25 for Mesenteric Panniculitis. Pt has Premera and MCR A Only for insurance and his PCP is Angela Heard. EMR was reviewed. Per MD, pt with hx of MS and has had n/v/d for the past 2 weeks and admitted for GI recommendation of IV steroids and NPO. Pt now to trial clears to see if he can tolerate and making slow improvements and anticipates another 2 days before discharge. SW met bedside with pt and explained role and he confirms he lives at home in [place] with his and their adult son lives with them but is about to go out of town for a vacation but spouse is active and able to provide assist as needed at d/c. Pt confirms he typically uses a FWW for ambulation due to his MS but is independent with ADLs at baseline. Pt denies any hx of SNF but has used HH in the past and he found HH fairly helpful. Pt confirms he feels weaker than baseline but is hopeful once he can start eating again that his strength will return. DPOA is his spouse Marta. Pt's preference is to d/c home with spouse when stable and aware that if he remains weak then possible PT eval to r/o any HH needs at d/c. Plan: SW to follow for plan of discharge home with spouse assist in a couple days if stable and to confirm he can tolerate advancing diet and r/o HH needs. ANASTASIIA Perez Discharge Planning/Care Management CM Discharge Assessment Start: 06/01/25 06:41 Freq: Status: Active Protocol: Document 06/02/25 11:34 BF (Rec: 06/02/25 11:37 BF [id number]) Discharge Planning Assessment Assigned Discharge ANASTASIIA Davis Siebel Developer DPOA/Assigned spouse Marta Designee Name Contact Information [phone] Advance Directives? No Advance Directives No on File History Provided By Patient,Medical Record Has Patient been No admitted in last 30 days? Prior Living House Arrangements Household Members spouse,children Comment Lives with spouse and adult son Type of Drives own vehicle transporation used prior to admit Independent with ADL Yes 's Is patient alert and Yes oriented? Needs Assistance Home Chores / Shopping With Caregiver for No Another DME Already Rented / FWW / Walker Owned Patient/Family Home with Home Health Preference Comment r/o possible HH needs Barriers to No Discharge Discharge Plan Home Transportation Spouse can transport at d/c Arrangement Additional Comment Pending progress, r/o possible HH at d/c Whiteboard Updated Yes in Patient Room with name and ext. # of [employer] Teacher Review Status In Process Please Provide Date 06/02/25 Initial DC Assessment Was Performed Next Review Type Continued Stay Review
--- NOTE | 2025-06-02 13:55 | PC.NURSE ---
Patient is alert and oriented x4, he is bed rest thus far in hospital. Patient has multiple skin issues that can be seen under skin assessment in chart. Bottom is red but blanchable. He ate about 40% of his dinner and drank his ice tea. is in room now. He just started eating a general diet and denies nausea or emesis.
[2025-06-02 16:00] VITALS: BP 137/84; PULSE 86; RESP 18; TEMP 36.1; O2SAT 96
[2025-06-02] MEDS: DALFAMPRIDINE 10 MG 10 EACH PO (20:47)
[2025-06-02] MEDS: DIMETHYL FUMARATE 240 MG 240 EACH PO (20:48)
[2025-06-03] VITALS: BP 128/63; PULSE 68; RESP 17; TEMP 36.1; O2SAT 95
[2025-06-03 06:25] VITALS: BP 116/59; PULSE 68; RESP 18; TEMP 36.3; O2SAT 96
[2025-06-03 08:00] VITALS: BP 122/72; PULSE 64; RESP 18; TEMP 36.4; O2SAT 93
--- NOTE | 2025-06-03 08:07 | PM.DS.1 ---
History of Present Illness History of Present Illness Date Patient Seen: 06/03/25 Chief complaint: n/v Discharge Providers Provider Date of admission: 06/01/25 06:33 Primary care physician: Tim Arroyo MD Discharge provider: Osiris Rodríguez MD Summary Hospital Course Hospital Course: Mesenteric panniculitis. Admit the patient to medical inpatient. Per the recommendation of GI physician on-call, we will continue IV Solu-Medrol 40 mg every 8 hours until symptoms improved. At discharge 1 month steroids tapering regimen recommended. Prednisone 40 mg p.o. daily for 7 days then 30 mg daily for 7 days then 20 mg daily for 7 days then 10 mg for 7 days and the patient can follow-up with GI postdischarge. Of note stool studies were negative. Patient remains hemodynamically stable. Begin oral intake today and if does well then change to oral steroids. Multiple sclerosis, present on admission. Chronic. -clarify availability of and appropriateness for continuation of Tecfidera and Ampyra. Sleep apnea. BiPAP at night. Depression-change to current treatment of fluoxetine (no longer on escitalopram). Hypertension. Monitor blood pressure and resume home medication accordingly. DVT prophylaxis heparin subcu. CODE STATUS full code. Disposition likely home in 1-2 days. Exam Vital Signs (past 8 hours): - 06/03/25 06:25 Temperature 97.3 F L Pulse Rate 68 Respiratory Rate 18 Blood Pressure 116/59 L Pulse Oximetry 96 Oxygen Flow Rate 0 Oxygen Delivery Method Room Air Oxygen Flow Rate 0 Objective Labs 06/02/25 05:20 06/02/25 05:20 [facility] Medical History Chronic fatigue Insomnia Morbid obesity with body mass index (BMI) greater than or equal to 50 Multiple sclerosis (09/04/17) Obstructive sleep apnea of adult Snoring Vitamin D deficiency, unspecified Surgical History Status post appendectomy Status post cholecystectomy Family History Father Arrhythmia Grandfather Heart disease Hypertension Congestive heart failure Grandmother Cancer Mother Age: 82 Cancer Hypertension Stroke Grandfather Stroke Grandmother Heart disease Social History marital status: details: cheyenne Lozano, lives in [place] number of children: 2 household members: spouse and children lives independently: Yes caregiver/support person: No housing: house education level: college occupational status: disabled Previous occupational history: dentist, 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 Kirby 11/06/18 (DME) Resmed Airsense 10 CPAP Qty: 1 Dose Instruction: As directed Patient Comments: Pressure: 10-14 cmH2O DME: [place] Rx Instructions: As directed Follow up/Referrals: Tim Arroyo MD [Primary Care Provider, Internal Medicine] Discharge Data Primary Care Provider: Tim Arroyo
[2025-06-03] MEDS: DALFAMPRIDINE 10 MG 10 EACH PO (09:04)
[2025-06-03] MEDS: DIMETHYL FUMARATE 240 MG 240 EACH PO (09:04)
[2025-06-03] MEDS: HEPARIN 5,000 UNIT/ML VIAL 5000 UNIT SUBCUT (09:04)
[2025-06-03] MEDS: SODIUM CHLORIDE 0.9% 1,000 ML 100 ML IV (09:20)
--- NOTE | 2025-06-03 12:16 | PC.NURSE ---
Patient has been comfortable this morning. He denies pain. Visiting with his now.
--- NOTE | 2025-06-03 13:02 | P.PN_ITS ---
Subjective Subjective Date Patient Seen: 06/03/25 Time Patient Seen: 13:02 Exam Vital Signs (past 8 hours): - 06/03/25 06:25 06/03/25 08:00 Temperature 97.3 F L 97.6 F Pulse Rate 68 64 Respiratory Rate 18 18 Blood Pressure 116/59 L 122/72 Pulse Oximetry 96 93 Oxygen Flow Rate 0 0 Oxygen Delivery Method Room Air Oxygen Flow Rate 0 Objective Labs 06/02/25 05:20 06/02/25 05:20 [facility] Medical History Chronic fatigue Insomnia Morbid obesity with body mass index (BMI) greater than or equal to 50 Multiple sclerosis (09/04/17) Obstructive sleep apnea of adult Snoring Vitamin D deficiency, unspecified Surgical History Status post appendectomy Status post cholecystectomy Family History Father Arrhythmia Grandfather Heart disease Hypertension Congestive heart failure Grandmother Cancer Mother Age: 82 Cancer Hypertension Stroke Grandfather Stroke Grandmother Heart disease Social History marital status: details: cheyenne Lozano, lives in [place] number of children: 2 household members: spouse and children lives independently: Yes caregiver/support person: No housing: house education level: college occupational status: disabled Previous occupational history: dentist, 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 Admit the patient to medical inpatient. Per the recommendation of GI physician on-call, we will continue IV Solu-Medrol 40 mg every 8 hours until symptoms improved. At discharge 1 month steroids tapering regimen recommended. Prednisone 40 mg p.o. daily for 7 days then 30 mg daily for 7 days then 20 mg daily for 7 days then 10 mg for 7 days and the patient can follow-up with GI postdischarge. Of note stool studies were negative. Patient remains hemodynamically stable. Begin oral intake today and if does well then change to oral steroids. Multiple sclerosis, present on admission. Chronic. -clarify availability of and appropriateness for continuation of Tecfidera and Ampyra. Sleep apnea. BiPAP at night. Depression-change to current treatment of fluoxetine (no longer on escitalopram). Hypertension. Monitor blood pressure and resume home medication accordingly. DVT prophylaxis heparin subcu. CODE STATUS full code. Disposition likely home in 1-2 days. Time-Based Coding :: [TOTAL MINUTES] spent with patient and on the chart (including review of chart, obtaining history, exam, reviewing outside data, placing orders, documenting exam and treatment plan, and counseling patient) on [DATE].
--- NOTE | 2025-06-03 13:58 | OT.IPNOTE ---
Attempted OT eval and pt's able to get pt up and is well capable to assist pt for all ADL and mobility needs. Discharge OT eval orders.
--- NOTE | 2025-06-03 14:30 | PM.DS.1 ---
History of Present Illness History of Present Illness Date Patient Seen: 06/03/25 Time Patient Seen: 14:30 Chief complaint: n/v Narrative: 59-year-old male with past medical history of multiple sclerosis, morbid obesity, anxiety, obstructive sleep apnea, complex abdominal surgical history and subsequent small bowel obstructions and partial small bowel excision over the 6-month presents with complaint of severe nausea vomiting and nonbloody diarrhea. Of note the patient also has a fistulous track and wound VAC in the past with small dressing most recently. Over the last 2 and half weeks, the patient has been having these GI symptoms with severe nausea, vomiting and diarrhea. Denies any recent antibiotic use. Denies any fever, chills, GI bleed, chest pain or dysuria. Denies any coughing. Does have some abdominal discomfort associated with the GI symptoms. In the emergency room, the patient was hemodynamically stable. However WBC was 20,000. ALT 87. Lipase 16. Procalcitonin 0.104. CT abdomen and pelvic shows signs suspecting mesenteric panniculitis. Stool studies were sent. Our ER physician did reach out to on-call GI physician who recommended that we start the patient on IV steroids. The patient remains hemodynamically stable. Discharge Providers Provider Date of admission: 06/01/25 06:33 Discharge Date: 06/03/25 Primary care physician: Angela Heard MD Consults: 06/03/25 10:36 Consult to Occupational Therapy Evaluate & Treat Comment: Physician Instructions: Evaluate and treat Consult to Physical Therapy Evaluate & Treat Comment: Physician Instructions: Evaluate and Treat Discharge provider: Osiris Rodríguez MD Summary Hospital Course Hospital Course: Mesenteric panniculitis. Per Dr. Navarrete ([facility]) IV Solu-Medrol 40 mg every 8 hours until symptoms improved. At discharge 1 month steroids tapering regimen recommended. Prednisone 40 mg p.o. daily for 7 days then 30 mg daily for 7 days then 20 mg daily for 7 days then 10 mg for 7 days and the patient can follow-up with GI postdischarge. Of note stool studies were negative. Started on oral intake yesterday, tolerated well and changed to prednisone today before discharge. He will follow up with Dr. Heard and will arrange GI follow-up with Dr. Navarrete for later this month. Multiple sclerosis, present on admission. -continue home doses of Tecfidera and Ampyra. Sleep apnea. BiPAP at night. Depression-change to current treatment of fluoxetine (no longer on escitalopram). Hypertension. Monitor blood pressure and resume home medication accordingly. CODE STATUS full code. Status at Discharge Cognitive/behavioral status at discharge: at baseline, oriented Functional status at discharge: uses cane/walker Overall status at discharge: patient is back to baseline Exam Vital Signs (past 8 hours): - 06/03/25 08:00 Temperature 97.6 F Pulse Rate 64 Respiratory Rate 18 Blood Pressure 122/72 Pulse Oximetry 93 Oxygen Flow Rate 0 Oxygen Delivery Method Room Air Oxygen Flow Rate 0 Narrative Exam Narrative: He was seen 3 or 4 times today. Each time we discussed potential discharge. At 1st he suspected he was going to be too weak to go home immediately but once PT worked with him it was clear that he was very close to his baseline and mostly independent. Alert and oriented. Pleasant and cooperative. No apparent distress. Heart is regular rate and rhythm without murmur Lungs are clear to auscultation bilaterally Extremities have no ankle edema. Abdomen is soft, obese, nontender, no organomegaly. Objective Labs 06/02/25 05:20 06/02/25 05:20 [facility] Medical History Chronic fatigue Insomnia Morbid obesity with body mass index (BMI) greater than or equal to 50 Multiple sclerosis (09/04/17) Obstructive sleep apnea of adult Snoring Vitamin D deficiency, unspecified Surgical History Status post appendectomy Status post cholecystectomy Family History Father Arrhythmia Grandfather Heart disease Hypertension Congestive heart failure Grandmother Cancer Mother Age: 82 Cancer Hypertension Stroke Grandfather Stroke Grandmother Heart disease Social History marital status: details: cheyenne Lozano, lives in [place] number of children: 2 household members: spouse and children lives independently: Yes caregiver/support person: No housing: house education level: college occupational status: disabled Previous occupational history: dentist, 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 Angela Heard and Dr. Navarrete soon Discharge orders & Medications Prescriptions: New fluoxetine 20 mg Capsule 60 mg PO DAILY Qty: 30 0RF multivitamin with folic acid [Tab-A-Cait] 400 mcg Tablet 1 tab PO DAILY Qty: 30 0RF prednisone 10 mg tablet 10 mg PO DIRECTED Qty: 70 0RF Rx Instructions: Prednisone 40 mg p.o. daily for 7 days then 30 mg daily for 7 days then 20 mg daily for 7 days then 10 mg for 7 days Continued dalfampridine [Ampyra] 10 MG tablet extended release 12 hr 10 mg PO BID Qty: 0 dimethyl fumarate [Tecfidera] 240 MG capsule,delayed release(DR/EC) 240 mg PO BID Qty: 0 cholecalciferol (vitamin D3) 50,000 UNIT capsule 70,000 unit PO QWEEK Qty: 0 hydrochlorothiazide 25 mg tablet 25 mg PO QDAY Qty: 90 0RF Rx Instructions: NO further refills until seen by Dr. Kirby 11/06/18 (DME) Resmed Airsense 10 CPAP Qty: 1 Dose Instruction: As directed Patient Comments: Pressure: 10-14 cmH2O DME: [place] Rx Instructions: As directed Follow up/Referrals: Tim Arroyo MD [Primary Care Provider, Internal Medicine] Diet/Activity/Treatments Diet: Regular Visit Report/Discharge Packet Stand Alone Forms: Patient Portal/API, Stroke Signs & Symptoms Discharge Data Primary Care Provider: Tim Arroyo
--- NOTE | 2025-06-03 14:34 | PT.IIE ---
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) Surgical History (Last Reviewed 12/29/21 @ 12:20 by Linwood De La Rosa MD) Status post appendectomy Status post cholecystectomy Medical History (Last Reviewed 12/29/21 @ 12:20 by Linwood De La Rosa MD) Chronic fatigue Insomnia Morbid obesity with body mass index (BMI) greater than or equal to 50 Multiple sclerosis (09/04/17) Obstructive sleep apnea of adult Snoring Vitamin D deficiency, unspecified Physical Therapy Inpatient Evaluation/Re-Eval M1 PT/OT-IP Prior Functional Status Start: 06/03/25 14:24 Freq: NEEDED Status: Active Protocol: Document 06/03/25 13:42 MB (Rec: 06/03/25 14:34 MB Desktop) Medical Review Prior Functional Status Medical History Yes Reviewed Diet/Fluid Regular Consistency Communication WNLs Mobility and Gait Mod I to assistance from for gait with RW or rollator in the house, he also has electric scooter and w/c Activities of Daily Assistance from for ADLs Living and IADL's Social History Household Members spouse,children Living Arrangements House Number of Stairs To No steps Enter/Railing? Home Environment High Toilet,Walk in Shower Home Equipment Front Wheel Walker,Four Wheel Walker,Power Wheelchair/ Scooter,Shower Seat without Backrest,Hand Held Shower, Grab Bars In Shower Employment Status Retired Additional Social Pt sleeps in electric recliner that has lift assistance History Comment M2 PT-IP Current Condition Start: 06/03/25 14:24 Freq: NEEDED Status: Active Protocol: Document 06/03/25 13:42 MB (Rec: 06/03/25 14:34 MB Desktop) Physical Therapy Current Condition Current Condition Evaluation Date 06/03/25 Treatment Diagnosis Diarrhea, history of MS M3 PT-IP Subjective Start: 06/03/25 14:24 Freq: NEEDED Status: Active Protocol: Document 06/03/25 13:42 MB (Rec: 06/03/25 14:34 MB Desktop) Subjective Physical Therapy Visit Type Type Initial Evaluation Visit Start Time 13:42 Visit Stop Time 14:20 Number of SOFTWARE APPLICATION TESTER Visits 0 Physical Therapy Visit Comments Patient Comments Pt does well with directing treatment and mobility with . Therapy Pain Assessment Pain When Pain Assessed At Rest Pain Present Pain Present Denied Pain M4 PT-IP Mobility and Gait Start: 06/03/25 14:24 Freq: NEEDED Status: Active Protocol: Document 06/03/25 13:42 MB (Rec: 06/03/25 14:34 MB Desktop) PT-Bed Mobility Assessment Supine to Sit Supine to Sit Contact Guard Assistance,1 Person Assistance,Head of Bed Elevated,Bedrails Scooting Scooting to Edge of Minimal Assistance Bed PT-Transfer Assessment Sit to and From Stand Sit to and from Minimal Assistance,Moderate Assistance Stand Equipment Orthotic/Prosthetic No Devices or Brace: Transfers Transfer Destination Chair Transfer Technique Ambulation Transfer Ability Level of Assist Minimal Assistance,Moderate Assistance Comments Mobility Comments assists patients through UEs for STS as they do at home Gait Assessment Gait Gait Assistance Contact Guard Assist Required: Distance (Feet) 50 Able to Maintain Yes Weight Bearing Status During Gait Assistive Devices Assistive Device Front Wheeled Walker Gait Deviations General Gait Pattern Decreased Stride Length,Decreased Feet Clearance,Flexed Trunk,Step-to Gait Factors Limiting Gait Function Factors Limiting Decreased Activity Tolerance,Decreased Sensation, Gait Function Decreased Strength,Incoordination,Limited Range of Motion,Poor Balance Comments Gait Comments Pt gait trains with his collapsable/travel RW with CGA. He declines gait belt. He presents with increased weakness in RLE with walking and collapses through the hip and knee as far as maintaining extensor strength. PT-Balance Assessment Sitting Balance and Reactions Static Sitting Good Balance Ability Dynamic Sitting Fair Balance Ability Standing Balance and Reactions Static Standing Fair Balance Ability Dynamic Standing Fair Balance Ability Device Used RW M5 PT-IP Objective Assessments Start: 06/03/25 14:24 Freq: NEEDED Status: Active Protocol: Document 06/03/25 13:42 MB (Rec: 06/03/25 14:34 MB Desktop) Orientation Orientation/Cognition Level of Alertness Alert Orientation Name,Birthday Language Function No Deficits Noted Ability Safety Awareness Understands Safety Issues Memory Description No Deficits Noted Gross Range of Motion Upper Extremity ROM Impairments Defer to OT Lower Extremity ROM Assessment Right Impaired Impairments More functional weakness in the right leg than the left Strength Lower Extremity Strength Assessment Right Impaired Coordination Assessment Gross Coordination Gross Coordination Impaired Sensation Assessment Comments Sensation Comments NT M7 PT-IP Assessment and Plan Start: 06/03/25 14:24 Freq: NEEDED Status: Active Protocol: Document 06/03/25 13:42 MB (Rec: 07/08/25 14:34 MB Desktop) PT Summary Assessment and Plan Potential Rehabilitation Good Potential Status of Condition Evolving at Evaluation Summary Impairments ROM,Strength,Balance,Coordination,Bed Mobility, Transfers,Gait,Activity Tolerance Assessment Summary Pt is a gentleman adm to hospital with diarrhea. He has a history of baseline GI disease and MS. PT consult to assess mobility prior to d/c and he does well with 's assistance with transfers and is CGA with his RW to gait train in the room. They report that he is close to his baseline mobility level. They decline HHPT . They ask about calibrating his bioness machine and PT does spend time talking about options for this to pursue at d/c. D/c acute PT. Frequency of Treatment Frequency Of Discharge Treatment Recommendations To Nursing Amount of Assist 2 Person Assist Needed Discharge Recommendations PT Discharge Home with Assistance Recommendations Transportation Needs Private Vehicle at Discharge - PT assist x1
== END 2025-06-03 16:04 | disposition home or self-care (01) | DRG 394 ==
LOC: ED 06-01 06:24 → AC 06-01 06:34
PROVIDERS: Family Medicine; Admitting Provider Internal Medicine; Emergency Provider Emergency Medicine; Family Provider Physical Medicine & Rehabilitation; PCP Internal Medicine; Referring Provider Emergency Medicine; Visit Provider Internal Medicine
DX: K65.4 Sclerosing mesenteritis (principal); Z68.42 Body mass index [BMI] 45.0-49.9, adult; E66.01 Morbid (severe) obesity due to excess calories; G47.30 Sleep apnea, unspecified; I10 Essential (primary) hypertension; G35 Multiple sclerosis; F32.A Depression, unspecified; I73.9 Peripheral vascular disease, unspecified; Z98.890 Other specified postprocedural states; Z87.891 Personal history of nicotine dependence
CPT/HCPCS: 36415; 74177; 80053; 82962; 83605; 83690; 84145; 85025; 87040; 87507; 93005; 93010; 96361; 96374; 96375; 96376; 97161; 97535; 99284; 99291; J1200; J1644; J2405; J2765; J2919; Q9967